=== PATIENT | female | born 1925 | race Caucasian/White ===

== ENCOUNTER 2016-05-06 11:19 | Inpatient (IN) | payer MEDICARE, BC ==
--- NOTE | 2016-05-06 11:37 | EDM.PDOC ---
ED HPI SEIZURE COMPLAINT - General Chief Complaint: Syncope Stated Complaint: [facility] Time Seen by Provider: 05/06/16 11:24 Source of Information: Reports: Patient History Limitations: Reports: No limitations - History of Present Illness INITIAL COMMENTS - FREE TEXT/NARRATIVE: 82-year-old female presents the ED per ambulance from [place]. Patient lives alone. She states she was seated at the breakfast table eating some grapefruit when she began to feel dizzy lightheaded and the next thing she knew she was on the floor. unclear how long she was on the floor. She remembers looking at the phone and finding it too far away to crawl to. She did have a life line and she did call this. The phone rang which is of course unable to answer. Paramedics did show up and identified her to be in distress and on the floor. Of note she had fallen in the kitchen. She does not believe she banged her head on anything else other than perhaps the floor. She describes a right frontal temporal headache that kind of comes and goes. Associated nausea and vomiting. She did lose control of her bladder during this syncopal event. This is never happened to her before. She denies any other injuries. However she has not gotten up off the floor since paramedics arrived. She has marked elevated systolic blood pressure at 225 with a diastolic of 81. She has chronic systolic hypertension. She seen Dr. 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 No medication changes were made. To her knowledge she has no heart problems. She denies any chest pain. She denies hurting any other body parts. She has been told she's had a stroke before because she has some right-sided lip weakness. This is never been confirmed however to her knowledge Symptom Onset Date: 05/06/16 Symptom Onset Time: 10:00 (She believes is happened around 10:00 this morning.) Timing/Duration: Reports: sudden onset Event Occurred (Where): home Event (Witnessed/Unwitnessed): unwitnessed (She lives alone) Location: Reports: other (Sudden onset of syncopal event where she fell off her chair while eating breakfast.) Severity: severe Context: Denies: recent ETOH, new/change in medications, missed med dose(s), illness, trauma, photo stimulation, activity/exercise, other Pre Event Symptom(s): Denies: premonition, confusion, chest pain, cough, diaphoresis, fever/chills, headaches, loss of appetite, malaise, nausea/vomiting , rash, shortness of breath, syncope, weakness Event Symptoms: Reports: incontinence, confusion, headaches, nausea/vomiting ( Vomited twice on the way to town.). Denies: tongue biting (Lost control of her bladder.), syncope, weakness, chest pain, cough, diaphoresis, fever/chills ( Right temporal frontal headache), loss of appetite, malaise, rash, shortness of breath Post Event Symptoms: Reports: headache. Denies: confused, combative, lethargic , altered speech Associated Injuries: Reports: other Treatments [employer]: Reports: Other (see below) (No injuries identified.) - Related Data Allergies/ADRs: Allergies Allergy/AdvReac Type Severity Reaction Status Date / Time procaine HCl [From Novocain] AdvReac Fainting Verified 05/06/16 12:05 rosuvastatin calcium AdvReac Muscle Verified 05/06/16 12:05 [From Crestor] Aches Home Meds: Home Meds Oxybutynin 5 mg PO DAILY PRN 03/17/14 [History] Cyanocobalamin (Vitamin B-12) [B-12] 2,500 mcg PO DAILY 12/01/14 [History] LORazepam [Ativan] 0.5 mg PO Q12H PRN 12/01/14 [History] Lisinopril [Prinivil] 20 mg PO BID 12/01/14 [History] Spironolactone [Aldactone] 12.5 mg PO DAILY 12/01/14 [History] cloNIDine HCl [Catapres] 0.1 mg PO ASDIRECTED PRN 12/01/14 [History] cloNIDine [Catapres-TTS 3] 0.3 mg TOP WEEKLY 12/01/14 [History] Aspirin/Calcium Carbonate/Mag [Aspirin Buffered 325 mg Tab] 325 mg PO DAILY 08/21 [History] Lutein 2 tab PO BID 05/14/15 [History] Metoprolol Succinate [Toprol XL] 25 mg PO DAILY 05/14/15 [History] Pravastatin [Pravachol] 5 mg PO ASDIRECTED 05/14/15 [History] Hydrochlorothiazide 12.5 mg PO DAILY 05/06/16 [History] amLODIPine [Norvasc] 2.5 mg PO DAILY 05/06/16 [History] Past Medical History Cardiovascular History: Reports: High cholesterol, Hypertension Genitourinary History: Reports: Urinary incontinence (Urge incontinence.) Musculoskeletal History: Reports: Back pain, chronic, Osteoarthritis, Osteoporosis Oncologic (Cancer) History: Reports: Other (see below) (She has apparently a growth on the inside of her right cheek along the mandible. 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 and she is due for surgery next week.) Social & Family History - Tobacco Use Smoking Status *Q: Never Smoker Second Hand Smoke Exposure: No - Alcohol Use Days Per Week of Alcohol Use: 0 - Recreational Drug Use Recreational Drug Use: No - Living Situation & Occupation Living situation: Reports: , alone Occupation: retired ED [employer] GENERAL - Review of Systems Review Of Systems: See Below Constitutional: Denies: fever, chills, malaise, weakness, fatigue, decreased appetite, weight loss HEENT: Reports: Glasses (Eyeglasses fell off during the syncopal event and she has suffered some contusions and abrasions to the bridge of her nose where eyeglasses would reside), Nose pain (Mild) Respiratory: Reports: No Symptoms Cardiovascular: Reports: No symptoms, Blood pressure problem (Chronic severe systolic hypertension. Controlled with clonidine tablet as well as clonidine patch), Dyspnea on exertion (Mild in her feet at times), Edema. Denies: Chest pain, Claudication ( weekly.), Lightheadedness, Orthopnea Endocrine: Reports: fatigue GI/Abdominal: Reports: Constipation (Occasional) Musculoskeletal: Reports: neck pain, joint pain (Knees hips and low back at times.) Skin: Reports: no symptoms (Gautam at times) Neurological: Reports: No Symptoms. Denies: Difficulty Walking Psychiatric: Reports: No symptoms Hematologic/Lymphatic: Reports: no symptoms Immunologic: Reports: no symptoms - Physical Exam Exam: See Below Exam Limited By: No limitations General Appearance: alert, anxious, moderate distress, other (Abrasions and contusions to the bridge of her nose where her eyeglasses were.) Eye Exam: bilateral eye: normal fundi, PERRL Ears: normal TMs Nose: other (Abrasions to the bridge of her nose and to the right side of her) Throat/Mouth: Other (Patient does have a large firm indurated swelling about the size $0.50 piece along her right buccal mucosa overlying the mandible) Head Exam: atraumatic, normocephalic Neck: normal inspection, supple, non-tender, full range of motion. No: carotid bruit, lymphadenopathy (L), lymphadenopathy (R) Respiratory/Chest: no respiratory distress, lungs clear, normal breath sounds, no accessory muscle use, other (Clonidine patches present on her right upper anterior chest she reports that she's he changed on either Monday or Monday as she can remember.) Cardiovascular: normal peripheral pulses, regular rate, rhythm, no edema, no gallop, no murmur, no rub GI/Abdominal: normal bowel sounds, soft, non tender, no organomegaly (Female) Exam: Other ( has been incontinent as her pants were wet with urine.) Neuro Exam (Abbreviated): alert, oriented, CN II-XII intact, normal cognition, no motor/sensory deficits. No: sensory/motor deficit DTR: 0: achilles (R), achilles (L), 1+: bicep (R), bicep (L), patella (R), patella (L) Back Exam: normal inspection, full range of motion. No: CVA tenderness (L), CVA tenderness (R), vertebral tenderness Extremities: normal inspection, normal range of motion, non-tender, no pedal edema, normal capillary refill, other Psychiatric: normal affect (Full of old range of motion of both hips and knees.) , normal mood Skin Exam: Warm, Dry, Intact, Normal color, No rash Course - Vital Signs Last Recorded V/S: Last Vital Signs Temp 36.6 C 05/06/16 17:34 Pulse 66 05/06/16 17:34 Resp 20 05/06/16 17:34 BP 179/72 H 05/06/16 17:34 Pulse Ox 98 05/06/16 17:34 - Orders/Labs/Meds Orders: Active Orders 24 hr Category Date Time Status EKG Documentation Completion [RC] STAT Care 05/06/16 11:35 Active URINALYSIS W/MICROSCOPIC [UA W/MICROSCOPIC] [URIN] Stat Lab 05/06/16 18:00 Ordered Sodium Chloride 0.9% [Normal Saline] 1,000 ml Med 05/06/16 11:45 Active IV ASDIRECTED Medication Orders Amlodipine Besylate (Norvasc) 2.5 mg PO DAILY@1830 [facility] Clonidine HCl (Catapres-Tts 3) 0.3 mg TOP Q7D [facility] Hydrochlorothiazide (Hydrochlorothiazide) 12.5 mg PO DAILY [facility] Sodium Chloride (Normal Saline) 1,000 mls @ 100 mls/hr IV ASDIRECTED [facility] Last Admin: 05/06/16 12:03 Dose: 100 mls/hr Lisinopril (Prinivil) 20 mg PO BID [facility] Lorazepam (Ativan) 0.5 mg PO Q12H PRN PRN Reason: Anxiety Metoprolol Succinate (Toprol Xl) 25 mg PO DAILY [facility] Oxybutynin Chloride (Oxybutynin) 5 mg PO DAILY PRN PRN Reason: bladder Simvastatin (Zocor) 2.5 mg PO DAILY@1830 [facility] Spironolactone (Aldactone) 12.5 mg PO DAILY [facility] Labs: Laboratory Tests 05/06/16 05/06/16 05/06/16 Range/Units 12:06 12:06 12:06 WBC 7.24 (3.98-10.04) K/mm3 RBC 3.39 L (3.98-5.22) M/mm3 Hgb 10.8 L (11.2-15.7) gm/L Hct 30.7 L (34.1-44.9) % MCV 90.6 (79.4-94.8) fl MCH 31.9 (25.6-32.2) pg MCHC 35.2 (32.2-35.5) g/dl RDW Std Deviation 41.7 (36.4-46.3) fL Plt Count 182 (182-369) K/mm3 MPV 9.9 (9.4-12.3) fl Neutrophils % (Manual) 84 H (40-60) % Band Neutrophils % 0 (0-10) % Lymphocytes % (Manual) 13 L (20-40) % Atypical Lymphs % 0 % Monocytes % (Manual) 2 (2-10) % Eosinophils % (Manual) 0 L (0.7-5.8) % Basophils % (Manual) 1 (0.1-1.2) Platelet Estimate Adequate RBC Morph Comment Normal PT 11.5 (8.0-13.0) SECONDS INR 1.05 Sodium 133 L (136-145) mEq/L Potassium 3.2 L (3.5-5.1) mEq/L Chloride 97 L (98-107) mEq/L Carbon Dioxide 25 (21-32) mEq/L Anion Gap 14.2 (5-15) BUN 18 (7-18) mg/dL Creatinine 0.9 (0.55-1.02) mg/dL Est Cr Clr Drug Dosing 35.74 mL/min Estimated GFR (MDRD) 59 (>60) mL/min BUN/Creatinine Ratio 20.0 H (14-18) Glucose 148 H (83-115) mg/dL Calcium 9.4 (8.5-10.1) mg/dL Total Bilirubin 0.6 (0.2-1.0) mg/dL AST 13 L (15-37) U/L ALT 21 (14-59) U/L Alkaline Phosphatase 82 (46-116) U/L Creatine Kinase (26-192) U/L CK-MB (CK-2) 0.8 (0-3.6) ng/ml Troponin I < 0.017 (0.00-0.056) ng/mL Total Protein 7.4 (6.4-8.2) g/dl Albumin 3.8 (3.4-5.0) g/dl Globulin 3.6 gm/dL Albumin/Globulin Ratio 1.1 (1-2) 05/06/ Range/Units 12:06 WBC (3.98-10.04) K/mm3 RBC (3.98-5.22) M/mm3 Hgb (11.2-15.7) gm/L Hct (34.1-44.9) % MCV (79.4-94.8) fl MCH (25.6-32.2) pg MCHC (32.2-35.5) g/dl RDW Std Deviation (36.4-46.3) fL Plt Count (182-369) K/mm3 MPV (9.4-12.3) fl Neutrophils % (Manual) (40-60) % Band Neutrophils % (0-10) % Lymphocytes % (Manual) (20-40) % Atypical Lymphs % % Monocytes % (Manual) (2-10) % Eosinophils % (Manual) (0.7-5.8) % Basophils % (Manual) (0.1-1.2) Platelet Estimate RBC Morph Comment PT (8.0-13.0) SECONDS INR Sodium (136-145) mEq/L Potassium (3.5-5.1) mEq/L Chloride (98-107) mEq/L Carbon Dioxide (21-32) mEq/L Anion Gap (5-15) BUN (7-18) mg/dL Creatinine (0.55-1.02) mg/dL Est Cr Clr Drug Dosing mL/min Estimated GFR (MDRD) (>60) mL/min BUN/Creatinine Ratio (14-18) Glucose (83-115) mg/dL Calcium (8.5-10.1) mg/dL Total Bilirubin (0.2-1.0) mg/dL AST (15-37) U/L ALT (14-59) U/L Alkaline Phosphatase (46-116) U/L Creatine Kinase 99 (26-192) U/L CK-MB (CK-2) (0-3.6) ng/ml Troponin I (0.00-0.056) ng/mL Total Protein (6.4-8.2) g/dl Albumin (3.4-5.0) g/dl Globulin gm/dL Albumin/Globulin Ratio (1-2) Meds: Medications Generic Name Dose Route Start Last Admin Trade Name Freq PRN Reason Stop Dose Admin Amlodipine Besylate 2.5 mg 05/07/16 18:30 Norvasc PO DAILY@1830 [facility] Clonidine HCl 0.3 mg 05/06/16 18:30 Catapres-Tts 3 TOP Q7D [facility] Hydrochlorothiazide 12.5 mg 05/07/16 09:00 Hydrochlorothiazide PO DAILY [facility] Sodium Chloride 1,000 mls @ 100 mls/hr 05/06/16 11:45 05/06/16 12:03 Normal Saline IV 100 mls/hr ASDIRECTED [facility] Administration Lisinopril 20 mg 05/06/16 21:00 Prinivil PO BID [facility] Lorazepam 0.5 mg 05/06/16 18:23 Ativan PO Q12H PRN Anxiety Metoprolol Succinate 25 mg 05/07/16 09:00 Toprol Xl PO DAILY [facility] Oxybutynin Chloride 5 mg 05/06/16 18:23 Oxybutynin PO DAILY PRN bladder Simvastatin 2.5 mg 05/06/16 18:30 Zocor PO DAILY@1830 [facility] Spironolactone 12.5 mg 05/07/16 09:00 Aldactone PO DAILY [facility] Discontinued Medications Generic Name Dose Route Start Last Admin Trade Name Javier PRN Reason Stop Dose Admin Amlodipine Besylate 2.5 mg 05/06/16 18:30 Norvasc PO DAILY [facility] Clonidine HCl 0.1 mg 05/06/16 13:33 05/06/16 13:55 Catapres PO 05/06/16 13:34 0.1 mg ONETIME ONE Administration Labetalol HCl 20 mg 05/06/16 12:11 05/06/16 12:17 Normodyne IVPUSH 05/06/16 12:12 20 mg ONETIME ONE Administration Lorazepam 0.5 mg 05/06/16 11:39 05/06/16 12:03 Ativan IVPUSH 05/06/16 11:40 0.5 mg ONETIME ONE Administration Metoclopramide HCl 7.5 mg 05/06/16 11:39 05/06/16 12:03 Reglan IVPUSH 05/06/16 11:40 7.5 mg ONETIME ONE Administration Potassium Chloride 20 meq 05/06/16 13:35 05/06/16 14:04 Klor-Con M20 PO 05/06/16 13:36 20 meq ONETIME ONE Administration Potassium Chloride Confirm 05/06/16 14:04 05/06/16 19:42 Klor-Con M20 Administered 05/06/16 14:05 Not Given Dose 20 meq .ROUTE .[facility] - Radiology Interpretation Free Text/Narrative:: 10-year-old female presents the ED with sudden onset of a syncopal event while seated at the breakfast table. It was unwitnessed and she lives alone. She remembers feeling a little bit dizzy and the next thing she remembers she woke up on the floor. Her glasses had been flown across the room. She has abrasions and contusions to her nose from the glasses. She appears to the face first. Complains of a headache it's kind of intermittent in the right temporal frontal skull. Denies any other injuries and no injuries were identified on exam. 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 He is due for operative intervention next week. She has systolic hypertension in her systolic blood pressure was 222/81 time of exam. Question is whether she has suffered a hypertensive bleed with a seizure with loss of bladder control. Plan CT of the brain to be done. ECG and routine labs to be carried out. She is suffering from nausea and vomiting at this time. We'll give Reglan 7.5 mg IV and Ativan 0.5 mg IV for anxiety and hopefully bring down her blood pressure wee bit. - Re-Assessments/Exams Free Text/Narrative Re-Assessment/Exam: 05/06/16 12:09 she is back from CT. It reveals advanced degenerative changes with marked enlargement of the lateral ventricles. There is diffuse small vessel ischemic changes in both basal ganglia and numerous small lacunar infarcts in both basal ganglia. The largest is in the right left posterior basal ganglia. There also appears to be a small infarct in the right parietal lobe. There is no intracranial hemorrhage. No sinuses and she did not break her nose when she fell. Chest x-ray shows normal cardiac silhouette although the apex does abut the left lateral chest wall. No pleural effusions or infiltrates are evident in the lungs. Blood pressure remains high at 203/75 and I will therefore give her labetalol 20 mg IV in an effort to reduce her blood pressure. Her ECG shows sinus rhythm at 75 per minute. There is a first-degree AV block but I don't see any other abnormalities. 05/06/16 12:22 iI was able to get old notes and echocardiogram in the past has been essentially normal with minimal mitral regurgitation and minimal aortic valve regurgitation. Ejection fraction was maintained at 6065% at that time. This was done . She an ultrasound of her carotid arteries at the same admission 0 and no significant plaque is identified within either carotid artery. She was admitted to ICU on a nitroglycerin drip due to hypertensive crisis. We'll see how she responded to labetalol IV bolus and then consider starting a drip. 05/06/16 12:26 BP pressure is falling. It is currently 154 over 60.HR is 68. 05/06/16 13:34 Systolic blood pressure is gradually increasing and is currently 175. Going to give her clonidine 0.1 mg orally. Labs reveal normal white count 7.24 with a left shift of 84% neutrophils and no bands. Hemoglobin is low at 10.8 hematocrit is 30.7. Platelets are 182,000. Coags are normal. Sodium slightly low 133 potassium low at 3.2. Glucose mildly elevated at 148. Troponin is less than 0.017. The rest of chemistry is untoward. Going to give very Slow- K 20 mEq by mouth due to her hypokalemia. I will speak to the hospital spoke keep her in the hospital for observation status due to hypertensive crisis and the fact that she is a syncopal episode of unknown duration while seated today. The reason for this is unclear. She has evidence of multi-infarct in both basal ganglia on CT. On rechecking her panties were a bit wet but her clothing was not truly soaked with urine so she never lost complete control of her urinary bladder during this event. Therefore it is unlikely that she did suffer a seizure. 05/06/16 14:16 nurses report that when they had her up walking she feels like she is listing a little bit to the left. He did not have to help her however she ambulated to the bathroom fairly well her own. Right frontal headache is still present to a mild degree. She complaining more of pain down her lower cervical spine area. I will therefore have CT of this area carried out. Note on my initial assessment she complained of no pain on palpation throughout the spine. 05/06/16 14:40 CT cervical spine has been completed. He reveals reveals extensive degenerative changes throughout the cervical spine particularly at the odontoid atlas juxtaposition. There is extensive degenerative disc disease throughout. No fractures are identified. 05/06/16 16:02 I had ordered an MRI of her brain to be done but unfortunately she has a pacemaker that is to be covered by a special To prevent the MRI or Magnant from disrupting information contained within the pacemaker itself. I found out she had an MRA of her brain 2 weeks ago and he did used to cover at that time successfully. Every was included in her admitting history. He still does not rule out an acute event. Spoke with Dr. Baumann and the plan will be to admit her to the observation unit for hypertension control and to see how she manages on her own since she lives alone at age 89. It's unclear why she had a severe something syncopal event while at the seated position. Cannot rule out another CVA. No cardiovascular etiology could be identified on exam today. Departure - Departure Time of Disposition: 16:03 Disposition: Refer to Observation Condition: fair Clinical Impression: Syncope and collapse, Systolic hypertension with cerebrovascular disease Fractured nasal bones Qualifiers: Encounter type: initial encounter Fracture type: closed Qualified Code(s): S02.2XXA - Fracture of nasal bones, initial encounter for closed fracture - My Orders Last 24 Hours: My Active Orders 05/06/16 11:35 EKG Documentation Completion [RC] STAT 05/06/16 11:45 Sodium Chloride 0.9% [Normal Saline] 1,000 ml IV ASDIRECTED 05/06/16 18:00 URINALYSIS W/MICROSCOPIC [UA W/MICROSCOPIC] [URIN] Stat - Assessment/Plan Last 24 Hours: My Active Orders 05/06/16 11:35 EKG Documentation Completion [RC] STAT 05/06/16 11:45 Sodium Chloride 0.9% [Normal Saline] 1,000 ml IV ASDIRECTED 05/06/16 18:00 URINALYSIS W/MICROSCOPIC [UA W/MICROSCOPIC] [URIN] Stat
[2016-05-06] MEDS ORDERED: Metoclopramide 10 MG/2 ML SDV IVPUSH ONE (11:39)
[2016-05-06] MEDS ORDERED: LORazepam 2 MG/ML MDV IVPUSH ONE (11:39)
[2016-05-06] MEDS: Sodium Chloride 0.9% 1,000 ML IV SCH ×2 (12:03→23:01)
--- NOTE | 2016-05-06 12:06 | CT ---
Head CT Technique: Multiple axial sections through the brain were obtained. Intravenous contrast was not utilized. Comparison: Previous head CT study of 05/14/15. Findings: Ventricles along with basal cisterns and sulci over the convexities are mildly prominent. Old lacunar infarcts are seen within the basal ganglia. Mild diminished density noted within the periventricular white matter and subcortical white matter compatible with small vessel ischemic demyelination change. No other abnormal parenchymal densities are seen. No evidence of intracranial hemorrhage. No midline shift or mass effect is seen. Bone window settings were reviewed which shows no discrete calvarial abnormality. Rounded soft tissue finding noted within the left maxillary sinus compatible with retention cyst measuring 1.2 cm. Mild mucosal thickening in seen within both maxillary sinuses. Impression: 1. Sinus findings which are felt to be incidental. 2. Senescent change as described above which is similar to prior study. 3. No acute intracranial abnormality is seen. Diagnostic code #2
[2016-05-06] MEDS ORDERED: Labetalol 100 MG/20 ML MDV IVPUSH ONE (12:11)
--- NOTE | 2016-05-06 12:19 | CR ---
Chest: Portable view of the chest was obtained. Comparison: Previous chest x-ray of 04/15/14. Heart size appears within normal limits for portable technique. Tortuous thoracic aorta is seen. No acute appearing infiltrates are seen. Bony structures are grossly intact. Incidental scoliosis is noted. Impression: 1. Nothing acute is suspected on portable chest x-ray. Diagnostic code #2
[2016-05-06] MEDS ORDERED: cloNIDine 0.1 MG Tab PO ONE (13:33)
[2016-05-06] MEDS ORDERED: Potassium Chloride 20 MEQ Tab.ER PO ONE (13:35)
[2016-05-06] MEDS ORDERED: Potassium Chloride 20 MEQ Tab.ER ONE (14:04)
--- NOTE | 2016-05-06 15:00 | CT ---
CT cervical spine Technique: Multiple axial sections were obtained from above the C1 inferiorly to the top of T2. Reconstructed sagittal and coronal images were reviewed. Comparison: Previous MRI cervical spine study of 03/24/16. Findings: Vertebral body heights and disc spaces are maintained. Diffuse anterior endplate osteophytes are seen. Degenerative change also noted between the dens and anterior arch of C1. Mild right-sided neural foraminal stenosis noted at C3-C4. Other neural foramina are felt to be patent. Diffuse degenerative change noted throughout the apophyseal joints. Vertebral bodies and posterior arches are intact with no fracture being seen. Mastoid sinuses and middle ear cavities are clear. Posterior skull base is intact. Impression: 1. Degenerative change as noted above. No acute bony abnormality is seen. Diagnostic code #2
[2016-05-06] MEDS ORDERED: LORazepam 0.5 MG Tab PO PRN (18:23)
[2016-05-06] MEDS ORDERED: Oxybutynin 5 MG Tab PO PRN (18:23)
[2016-05-06] MEDS ORDERED: amLODIPine 2.5 MG Tab PO SCH (18:30)
[2016-05-06] MEDS ORDERED: Simvastatin 10 MG Tab PO SCH (18:30)
--- NOTE | 2016-05-06 19:33 | PCM.HP ---
H&P History of Present Illness - General Date of Service: 05/06/16 Admit Problem/Dx: Admission Diagnosis/Problem Admission Diagnosis/Problem Syncope Source of Information: Patient, Provider History Limitations: Reports: No limitations - History of Present Illness Initial Comments - Free Text/Narative: 89 year female PMH hypertension, hyperlipidemia, urinary incontinence presented to the ED after a presyncopal episode. There is no loss of memory of the occurence, she sat down to eat around 10 am later than her usual breakfast. Had not taken her meds which she normally takes with her breakfast. Has seen a educational consultant at [facility], but now sees Soheila Barragan whom she saw 2-4 weeks ago. There have been no change in her medications recently. She denied feeling ill prior to the episode; did lose urinary but there appears to be no seizure like activity. As a result of the fall she has mild facial swell and minimal pain. She reported a headcahe on presentation to the ED and two occurrences of nausea and vomiting. The EMS system was initiated by [facility]. A CVA work up was unremarkable, CT of head without contrast. An MRA of the brain was recently performed which was unremarkable. A 2D echoas well as carotid duplex were performed 2014 or 2015, each study was within normal limits. The patient's last admission occurred early for hypertensive urgency, she has been stable subsequently but had markedly elevated blood pressure in the ED. Onset of Symptoms: Reports: sudden Symptom Onset Date: 05/06/16 Duration of Symptoms: Reports: Hour(s): Severity: moderate Improves with: Reports: None Worsens with: Reports: None Associated Symptoms: Reports: confusion, headaches, nausea/vomiting Right Head Pain Score (Numeric/FACES): 3 - Related Data Allergies/Adverse Reactions: Allergies Allergy/AdvReac Type Severity Reaction Status Date / Time procaine HCl [From Novocain] AdvReac Fainting Verified 05/06/16 12:05 rosuvastatin calcium AdvReac Muscle Verified 05/06/16 12:05 [From Crestor] Aches Home Medications: Home Meds Oxybutynin 5 mg PO DAILY PRN 03/17/14 [History] Cyanocobalamin (Vitamin B-12) [B-12] 2,500 mcg PO DAILY 12/01/14 [History] LORazepam [Ativan] 0.5 mg PO Q12H PRN 12/01/14 [History] Lisinopril [Prinivil] 20 mg PO BID 12/01/14 [History] Spironolactone [Aldactone] 12.5 mg PO DAILY 12/01/14 [History] cloNIDine HCl [Catapres] 0.1 mg PO ASDIRECTED PRN 12/01/14 [History] cloNIDine [Catapres-TTS 3] 0.3 mg TOP WEEKLY 12/01/14 [History] Aspirin/Calcium Carbonate/Mag [Aspirin Buffered 325 mg Tab] 325 mg PO DAILY 08/21 [History] Lutein 2 tab PO BID 05/14/15 [History] Metoprolol Succinate [Toprol XL] 25 mg PO DAILY 05/14/15 [History] Pravastatin [Pravachol] 5 mg PO ASDIRECTED 05/14/15 [History] Hydrochlorothiazide 12.5 mg PO DAILY 05/06/16 [History] Omeprazole 20 mg PO DAILY 05/06/16 [History] Rivaroxaban [Xarelto] 20 mg PO QPM 05/06/16 [History] amLODIPine [Norvasc] 2.5 mg PO DAILY 05/06/16 [History] Past Medical History HEENT History: Reports: Cataract, Hard of hearing Cardiovascular History: Reports: High cholesterol, Hypertension Genitourinary History: Reports: Urinary incontinence 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: Musculoskeletal History: Reports: Back pain, chronic, Osteoarthritis, Osteoporosis Neurological History: Reports: TIA Other Neuro History: currently admitted for TIA Psychiatric History: Reports: Anxiety Hematologic History: Reports: Anemia, B12 deficiency Oncologic (Cancer) History: Reports: Other (see below) Other Oncologic History: mouth - Infectious Disease History Infectious Disease History: Reports: Chicken pox, Measles, Mumps, Shingles - Past Surgical History HEENT Surgical History: Reports: Cataract surgery Cardiovascular Surgical History: Reports: None Female Surgical History: Reports: None Neurological Surgical History: Reports: None Musculoskeletal Surgical History: Reports: None Oncologic Surgical History: Reports: None Social & Family History - Family History Cardiac: Reports: Heart failure, High cholesterol, Hypertension, NM Respiratory: Reports: COPD OBGYN: Reports: Oncologic: Reports: Lung, Pancreatic - Tobacco Use Smoking Status *Q: Never Smoker Second Hand Smoke Exposure: No - Caffeine Use Caffeine Use: Reports: Coffee, Tea - Alcohol Use Days Per Week of Alcohol Use: 0 - Recreational Drug Use Recreational Drug Use: No - Living Situation & Occupation Living situation: Reports: , alone Occupation: retired H&P Review of Systems - Review of Systems: Review Of Systems: See Below General: Reports: weakness (unable to get up) HEENT: Reports: no symptoms Pulmonary: Reports: No Symptoms Cardiovascular: Reports: other (presyncopal) Gastrointestinal: Reports: No symptoms Genitourinary: Reports: no symptoms Musculoskeletal: Reports: no symptoms Skin: Reports: bruising (facial) Psychiatric: Denies: confusion Neurological: Reports: Dizziness, Headache (right methodist). Denies: Confusion Hematologic/Lymphatic: Reports: no symptoms Immunologic: Reports: no symptoms Exam - Exam Exam: See Below - Vital Signs Vital Signs: Last Vital Signs Temp 36.6 C 05/06/16 17:34 Pulse 66 05/06/16 17:34 Resp 20 05/06/16 17:34 BP 179/72 H 05/06/16 17:34 Pulse Ox 98 05/06/16 17:34 Weight: 74.435 kg - Exam Quality Assessment: DVT prophylaxis General: alert, oriented, cooperative HEENT: EACs clear, EOMI, Hearing intact, Nares patent, Pupils equal, Pupils reactive, Other (facial swelling; ecchymosis) Neck: supple, trachea midline Lungs: Normal respiratory effort Cardiovascular: regular rate, regular rhythm Abdomen: normal bowel sounds, soft (Female) Exam: Deferred Rectal (Female) Exam: Deferred Back Exam: normal inspection Extremities: normal pulses Skin: warm Neurological: cranial nerves intact, reflexes equal bilateral Neuro Extensive - Mental Status: alert, oriented x3, normal mood/affect, normal cognition, memory intact Psychiatric: alert, normal affect, normal mood - Patient Data Result Diagrams: 05/07/16 05:20 05/07/16 05:20 *Q Meaningful Use (ADM) - VTE *Q VTE Criteria *Q: - Stroke *Q Stroke Criteria *Q: - AMI *Q AMI Criteria *Q: Problem List Initiated/Reviewed/Updated: Yes Orders Last 24hrs: Active Orders 24 hr Category Date Time Status Bedrest Bathroom Privileges [RC] ASDIRECTED Care 05/06/16 19:06 Active EKG 12 Lead [EKG Documentation Completion] [RC] ROUTINE Care 05/07/16 08:00 Active Vital Signs [RC] PER UNIT ROUTINE Care 05/06/16 18:54 Active Consult to Occupational Therapy [OT Evaluation and Cons 05/07/16 10:00 Active Treatment] [CONS] Routine Consult to Physical Therapy [PT Evaluation and Cons 05/07/16 09:00 Active Treatment] [CONS] Routine Consult to Regional Clinical Research Associate [CONS] Routine Cons 05/06/16 18:55 Active Full Liquid Diet [DIET] Diet 05/06/16 Dinner Active BASIC METABOLIC PANEL,BMP [CHEM] DAILY Lab 05/07/16 05:00 Ordered BASIC METABOLIC PANEL,BMP [CHEM] DAILY Lab 05/08/16 05:00 Ordered BASIC METABOLIC PANEL,BMP [CHEM] DAILY Lab 05/09/16 05:00 Ordered CBC WITH AUTO DIFF [HEME] DAILY Lab 05/07/16 05:00 Ordered CBC WITH AUTO DIFF [HEME] DAILY Lab 05/08/16 05:00 Ordered CBC WITH AUTO DIFF [HEME] DAILY Lab 05/09/16 05:00 Ordered CKMB [CHEM] Routine Lab 05/07/16 05:00 Ordered CRP [C-REACTIVE PROTEIN] [CHEM] DAILY Lab 05/07/16 05:00 Ordered CRP [C-REACTIVE PROTEIN] [CHEM] DAILY Lab 05/08/16 05:00 Ordered CRP [C-REACTIVE PROTEIN] [CHEM] DAILY Lab 05/09/16 05:00 Ordered INFLUENZA A+B AG SCREEN [RM] Routine Lab 05/06/16 18:51 Uncollected MAGNESIUM [CHEM] DAILY Lab 05/07/16 05:00 Ordered MAGNESIUM [CHEM] DAILY Lab 05/08/16 05:00 Ordered MAGNESIUM [CHEM] DAILY Lab 05/09/16 05:00 Ordered MYCOPLASMA PNEUMONIAE IGM AB [CHEM] Routine Lab 05/07/16 05:00 Ordered TROPONIN I [CHEM] Routine Lab 05/07/16 05:00 Ordered TSH [CHEM] DAILY Lab 05/07/16 05:00 Ordered TSH [CHEM] DAILY Lab 05/08/16 05:00 Ordered TSH [CHEM] DAILY Lab 05/09/16 05:00 Ordered Hydrochlorothiazide Med 05/07/16 09:00 Active 12.5 mg PO DAILY LORazepam [Ativan] Med 05/06/16 18:23 Active 0.5 mg PO Q12H PRN Lisinopril [Prinivil] Med 05/06/16 21:00 Active 20 mg PO BID Metoprolol Succinate [Toprol XL] Med 05/07/16 09:00 Active 25 mg PO DAILY Oxybutynin Med 05/06/16 18:23 Active 5 mg PO DAILY PRN Simvastatin [Zocor] Med 05/06/16 18:30 Active 2.5 mg PO DAILY@1830 Spironolactone [Aldactone] Med 05/07/16 09:00 Active 12.5 mg PO DAILY amLODIPine [Norvasc] Med 05/07/16 18:30 Active 2.5 mg PO DAILY@1830 cloNIDine [Catapres-TTS 3] Med 05/06/16 18:30 Pending 0.3 mg TOP Q7D Code Status [Resuscitation Status] Routine Resus Stat 05/06/16 18:55 Ordered Medication Orders Amlodipine Besylate (Norvasc) 2.5 mg PO DAILY@1830 [facility] Clonidine HCl (Catapres-Tts 3) 0.3 mg TOP Q7D [facility] Hydrochlorothiazide (Hydrochlorothiazide) 12.5 mg PO DAILY [facility] Sodium Chloride (Normal Saline) 1,000 mls @ 100 mls/hr IV ASDIRECTED [facility] Last Admin: 05/06/16 12:03 Dose: 100 mls/hr Lisinopril (Prinivil) 20 mg PO BID [facility] Lorazepam (Ativan) 0.5 mg PO Q12H PRN PRN Reason: Anxiety Metoprolol Succinate (Toprol Xl) 25 mg PO DAILY [facility] Oxybutynin Chloride (Oxybutynin) 5 mg PO DAILY PRN PRN Reason: bladder Simvastatin (Zocor) 2.5 mg PO DAILY@1830 [facility] Spironolactone (Aldactone) 12.5 mg PO DAILY [facility] Assessment/Plan Comment:: Impression: Presyncopal episode, doubt seizure Can not exclude arrhythmia, has a loop recorder Recent CVA work up, MRA without contrast, circulation was intact Remote CV evaluation, carotid duplex, 2D echo, WNL Hypertensive episode, systolic; requires alpha john and 4 meds for control Headache, unspecified Nasal swelling post fall, no LOC Plan: Neurocheck IVF MS telemetry Ischemic eval, cardiac enzymes and ECG CT of head repeat, 05/08/16 if appropriate. SW/PT/OT DVT/GI prophylaxis LOS<96 hours, has been seen by ABIMBOLA; Home Health will be pursued
[2016-05-06] MEDS ORDERED: hydrALAZINE 20 MG/ML SDV IVPUSH PRN (20:17)
[2016-05-06] MEDS: Lisinopril 20 MG Tab PO SCH (20:27)
[2016-05-06] MEDS ORDERED: cloNIDine 0.3 MG/Day Transdermal Patch TOP SCH (21:00)
[2016-05-06] MEDS: cloNIDine 0.1 MG Tab PO SCH (21:21)
[2016-05-07] MEDS: Lisinopril 20 MG Tab PO SCH ×2 (08:20→21:34)
[2016-05-07] MEDS: Spironolactone 25 MG Tab PO SCH (08:21)
[2016-05-07] MEDS: Metoprolol Succinate 25 MG Tab.ER PO SCH (08:21)
[2016-05-07] MEDS: cloNIDine 0.1 MG Tab PO SCH ×2 (08:22→21:34)
[2016-05-07] MEDS ORDERED: Hydrochlorothiazide 25 MG Tab PO SCH (09:00)
[2016-05-07] MEDS ORDERED: Enoxaparin 40 MG/0.4 ML Syringe SUBCUT SCH (09:15)
--- NOTE | 2016-05-07 12:05 | PCM.PN ---
- General Info Date of Service: 05/07/16 Functional Status: Reports: pain controlled, tolerating diet, ambulating (with walker), urinating - Review of Systems General: Reports: No Symptoms HEENT: Reports: no symptoms Pulmonary: Reports: no symptoms Cardiovascular: Reports: No Symptoms Gastrointestinal: Reports: No symptoms Genitourinary: Reports: no symptoms Musculoskeletal: Reports: no symptoms Skin: Reports: no symptoms Neurological: Reports: No Symptoms Psychiatric: Reports: no symptoms - Patient Data Vitals - most recent: Last Vital Signs Temp 37.3 C 05/07/16 11:59 Pulse 69 05/07/16 11:59 Resp 20 05/07/16 11:59 BP 131/71 05/07/16 11:59 Pulse Ox 97 05/07/16 11:59 Weight - most recent: 74.435 kg I&O - last 24 hours: Intake & Output 05/06/16 05/07/16 05/07/16 22:59 06:59 14:59 Intake Total 345 1355 240 Balance 345 1355 240 Lab Results last 24 hrs: Laboratory Results - last 24 hr 05/06/16 05/07/16 05/07/16 Range/Units 18:30 05:20 05:20 WBC 4.96 (3.98-10.04) K/mm3 RBC 2.86 L (3.98-5.22) M/mm3 Hgb 9.1 L (11.2-15.7) gm/L Hct 26.8 L (34.1-44.9) % MCV 93.7 (79.4-94.8) fl MCH 31.8 (25.6-32.2) pg MCHC 34.0 (32.2-35.5) g/dl RDW Std Deviation 43.1 (36.4-46.3) fL Plt Count 181 L (182-369) K/mm3 MPV 10.2 (9.4-12.3) fl Neut % (Auto) 65.7 (34.0-71.1) % Lymph % (Auto) 19.4 (19.3-51.7) % [place] % (Auto) 13.5 H (4.7-12.5) % Eos % (Auto) 1.0 (0.7-5.8) Baso % (Auto) 0.2 (0.1-1.2) % Neut # (Auto) 3.26 (1.56-6.13) K/mm3 Lymph # (Auto) 0.96 L (1.18-3.74) K/mm3 [place] # (Auto) 0.67 H (0.24-0.36) K/mm3 Eos # (Auto) 0.05 (0.04-0.36) K/mm3 Baso # (Auto) 0.01 (0.01-0.08) K/mm3 Sodium 135 L (136-145) mEq/L Potassium 3.8 (3.5-5.1) mEq/L Chloride 101 (98-107) mEq/L Carbon Dioxide 25 (21-32) mEq/L Anion Gap 12.8 (5-15) BUN 12 (7-18) mg/dL Creatinine 0.9 (0.55-1.02) mg/dL Est Cr Clr Drug Dosing 35.74 mL/min Estimated GFR (MDRD) 59 (>60) mL/min BUN/Creatinine Ratio 13.3 L (14-18) Glucose 103 (83-115) mg/dL Calcium 8.3 L (8.5-10.1) mg/dL Magnesium 1.9 (1.8-2.4) mg/dl CK-MB (CK-2) 1.0 (0-3.6) ng/ml Troponin I 0.085 H* (0.00-0.056) ng/mL C-Reactive Protein 0.5 (<1.0) mg/dL TSH 3rd Generation 2.651 (0.358-3.74) uIU/mL Urine Color Yellow (Yellow) Urine Appearance Slt cloudy H (Clear) Urine pH 6.0 (5.0-8.0) Ur Specific Silver 1.020 (1.005-1.030) Urine Protein Trace H (Negative) Urine Glucose (UA) Negative (Negative) Urine Ketones Negative (Negative) Urine Occult Blood Negative (Negative) Urine Nitrite Positive H (Negative) Urine Bilirubin Negative (Negative) Urine Urobilinogen 0.2 (0.2-1.0) Ur Leukocyte Esterase 1+ H (Negative) Urine RBC 0-5 (0-5) /hpf Urine WBC 20-30 H (0-5) /hpf Ur Squamous Epith Cells 10-20 H (0-5) /hpf Urine Bacteria Many H (FEW) /hpf Urine Mucus Not seen (FEW) /hpf Mycoplasma pneumon IgM Negative (NEGATIVE) [place] Results last 24 hrs: Microbiology 05/07/16 01:30 Influenza Type A Antigen Screen - Final Nasal, Left NEGATIVE INFLUENZA A VIRUS AG Influenza Type B Antigen Screen - Final NEGATIVE INFLUENZA B VIRUS AG Med Orders - Current: Current Medications Amlodipine Besylate (Norvasc) 2.5 mg PO DAILY@1830 [facility] Clonidine HCl (Catapres-Tts 3) 0.3 mg TOP Q7D [facility] Last Admin: 05/06/16 22:57 Dose: 0.3 mg Clonidine HCl (Catapres) 0.1 mg PO Q12HR [facility] Last Admin: 05/07/16 08:22 Dose: 0.1 mg Enoxaparin Sodium (Lovenox) 40 mg SUBCUT DAILY [facility] Hydralazine HCl (Apresoline) 20 mg IVPUSH Q6H PRN PRN Reason: Hypertension Hydrochlorothiazide (Hydrochlorothiazide) 12.5 mg PO DAILY [facility] Last Admin: 05/07/16 08:22 Dose: 12.5 mg Sodium Chloride (Normal Saline) 1,000 mls @ 100 mls/hr IV ASDIRECTED [facility] Last Admin: 05/06/16 23:01 Dose: 100 mls/hr Ceftriaxone Sodium 1 gm/ (Sodium Chloride) 100 mls @ 200 mls/hr IV Q24H [facility] Lisinopril (Prinivil) 20 mg PO BID [facility] Last Admin: 05/07/16 08:20 Dose: 20 mg Lorazepam (Ativan) 0.5 mg PO Q12H PRN PRN Reason: Anxiety Metoprolol Succinate (Toprol Xl) 25 mg PO DAILY [facility] Last Admin: 05/07/16 08:21 Dose: 25 mg Miscellaneous Information (Remove Patch) 1 ea TRDERM Q7D [facility] Last Admin: 05/06/16 21:30 Dose: 1 ea Oxybutynin Chloride (Oxybutynin) 5 mg PO DAILY PRN PRN Reason: bladder Simvastatin (Zocor) 2.5 mg PO Q48H [facility] Spironolactone (Aldactone) 12.5 mg PO DAILY [facility] Last Admin: 05/07/16 08:21 Dose: 12.5 mg Discontinued Medications Amlodipine Besylate (Norvasc) 2.5 mg PO DAILY [facility] Last Admin: 05/06/16 20:40 Dose: Not Given Clonidine HCl (Catapres) 0.1 mg PO ONETIME ONE Stop: 05/06/16 13:34 Last Admin: 05/06/16 13:55 Dose: 0.1 mg Labetalol HCl (Normodyne) 20 mg IVPUSH ONETIME ONE Stop: 05/06/16 12:12 Last Admin: 05/06/16 12:17 Dose: 20 mg Lorazepam (Ativan) 0.5 mg IVPUSH ONETIME ONE Stop: 05/06/16 11:40 Last Admin: 05/06/16 12:03 Dose: 0.5 mg Metoclopramide HCl (Reglan) 7.5 mg IVPUSH ONETIME ONE Stop: 05/06/16 11:40 Last Admin: 05/06/16 12:03 Dose: 7.5 mg Potassium Chloride (Klor-Con M20) 20 meq PO ONETIME ONE Stop: 05/06/16 13:36 Last Admin: 05/06/16 14:04 Dose: 20 meq Potassium Chloride (Klor-Con M20) Confirm Administered Dose 20 meq .ROUTE .STK- MED ONE Stop: 05/06/16 14:05 Last Admin: 05/06/16 19:42 Dose: Not Given Simvastatin (Zocor) 2.5 mg PO DAILY@1830 [facility] Last Admin: 05/06/16 21:45 Dose: Not Given - Exam Quality Assessment: DVT prophylaxis General: alert, oriented, cooperative, no acute distress HEENT: Pupils equal, Pupils reactive, EOMI, Other (ecchymosis nasal region) Neck: supple, trachea midline Lungs: Normal respiratory effort Cardiovascular: Regular Rate, Regular Rhythm Abdomen: bowel sounds present, soft, no tenderness, no distension (Female) Exam: Deferred Back Exam: normal inspection Extremities: normal pulses Skin: warm Neurological: no new focal deficit, normal speech Psy/Mental Status: alert, normal affect, normal mood - Problem List & Annotations (1) Fractured nasal bones SNOMED Code(s): 643269296 Code(s): S02.2XXA - FRACTURE OF NASAL BONES, INIT ENCNTR FOR CLOSED FRACTURE Status: Acute Current Visit: Yes Qualifiers: Encounter type: initial encounter Fracture type: closed Qualified Code(s) : S02.2XXA - Fracture of nasal bones, initial encounter for closed fracture (2) Systolic hypertension with cerebrovascular disease SNOMED Code(s): 39756274 Code(s): I67.4 - HYPERTENSIVE ENCEPHALOPATHY Status: Acute Current Visit : Yes (3) "Hypertensive disorder, systemic arterial " SNOMED Code(s): 16540279 Code(s): I10 - ESSENTIAL (PRIMARY) HYPERTENSION Status: Acute Current Visit: No - Problem List Review Problem List Initiated/Reviewed/Updated: Yes - My Orders Last 24 Hours: My Active Orders 05/06/16 18:23 LORazepam [Ativan] 0.5 mg PO Q12H PRN Oxybutynin 5 mg PO DAILY PRN 05/06/16 18:54 Vital Signs [RC] 00,04,08,12,16,20 05/06/16 18:55 Consult to Warehouse Operations Manager [CONS] Routine Code Status [Resuscitation Status] Routine 05/06/16 19:06 Bedrest Bathroom Privileges [RC] ASDIRECTED 05/06/16 20:17 hydrALAZINE [Apresoline] 20 mg IVPUSH Q6H PRN 05/06/16 21:00 Lisinopril [Prinivil] 20 mg PO BID Remove Patch 1 ea TRDERM Q7D cloNIDine [Catapres-TTS 3] 0.3 mg TOP Q7D cloNIDine [Catapres] 0.1 mg PO Q12HR 05/06/16 21:07 Patient Status [ADT] Routine 05/06/16 Dinner Full Liquid Diet [DIET] 05/07/16 09:00 Consult to Physical Therapy [PT Evaluation and Treatment] [CONS] Routine Hydrochlorothiazide 12.5 mg PO DAILY Metoprolol Succinate [Toprol XL] 25 mg PO DAILY Spironolactone [Aldactone] 12.5 mg PO DAILY 05/07/16 09:15 Enoxaparin [Lovenox] 40 mg SUBCUT DAILY 05/07/16 10:00 Consult to Occupational Therapy [OT Evaluation and Treatment] [CONS] Routine 05/07/16 11:45 cefTRIAXone [Rocephin] 1 gm Sodium Chloride 0.9% [Normal Saline] 100 ml IV Q24H 05/07/16 18:30 Simvastatin [Zocor] 2.5 mg PO Q48H amLODIPine [Norvasc] 2.5 mg PO DAILY@1830 05/08/16 05:00 BASIC METABOLIC PANEL,BMP [CHEM] DAILY CBC WITH AUTO DIFF [HEME] DAILY CRP [C-REACTIVE PROTEIN] [CHEM] DAILY MAGNESIUM [CHEM] DAILY TSH [CHEM] DAILY 05/09/16 05:00 BASIC METABOLIC PANEL,BMP [CHEM] DAILY CBC WITH AUTO DIFF [HEME] DAILY CRP [C-REACTIVE PROTEIN] [CHEM] DAILY MAGNESIUM [CHEM] DAILY TSH [CHEM] DAILY 05/09/16 07:00 CBC W/O DIFF,HEMOGRAM [HEME] MOTH@0700 05/12/16 07:00 CBC W/O DIFF,HEMOGRAM [HEME] MOTH@0700 05/16/16 07:00 CBC W/O DIFF,HEMOGRAM [HEME] MOTH@0700 05/19/16 07:00 CBC W/O DIFF,HEMOGRAM [HEME] MOTH@0700 05/23/16 07:00 CBC W/O DIFF,HEMOGRAM [HEME] MOTH@0700 05/26/16 07:00 CBC W/O DIFF,HEMOGRAM [HEME] MOTH@0700 - Plan Plan:: Impression: AUTI Presyncopal episode, doubt seizure Can not exclude arrhythmia, has a loop recorder Cardiac history includes diagnostic cardiac cath Recent CVA work up, MRA without contrast, circulation was intact Remote CV evaluation, carotid duplex, 2D echo, WNL Hypertensive episode, systolic; requires alpha john and 4 meds for control Headache, unspecified; resolved, minimal facial pain. Nasal swelling post fall, no LOC ABIMBOLA recommends Home Health Plan: Start rocephin Advance diet Neurocheck, stop. IVF, saline lock MS telemetry Increase activity Ischemic eval, cardiac enzymes and ECG No need for repeat CT of head. SW/PT/OT DVT/GI prophylaxis LOS<96 hours, has been seen by ABIMBOLA; Home Health will be pursued; dc 05/09/16
[2016-05-07] MEDS: cefTRIAXone 1 GM in Sodium Chloride 0.9% 100 ML IV SCH (13:11)
[2016-05-07] MEDS ORDERED: Rivaroxaban 10 MG Tab PO SCH (18:00)
[2016-05-07] MEDS ORDERED: amLODIPine 2.5 MG Tab PO SCH (18:30)
[2016-05-07] MEDS ORDERED: Simvastatin 10 MG Tab PO SCH (18:30)
[2016-05-07] MEDS: Sodium Chloride 0.9% 1,000 ML IV SCH (19:29)
[2016-05-07] MEDS: Simvastatin 10 MG Tab PO SCH (21:35)
[2016-05-08] MEDS ORDERED: cloNIDine 0.1 MG Tab PO ONE (00:24)
[2016-05-08] MEDS: Sodium Chloride 0.9% 1,000 ML IV SCH (06:32)
[2016-05-08] MEDS: Pantoprazole 40 MG Tab.CR PO SCH (07:06)
[2016-05-08] MEDS: Metoprolol Succinate 25 MG Tab.ER PO SCH (08:23)
[2016-05-08] MEDS: Lisinopril 20 MG Tab PO SCH ×2 (08:24→21:19)
[2016-05-08] MEDS: cloNIDine 0.1 MG Tab PO SCH ×2 (08:24→21:17)
[2016-05-08] MEDS: Spironolactone 25 MG Tab PO SCH (08:24)
[2016-05-08] MEDS: Hydrochlorothiazide 12.5 MG Cap PO SCH (08:29)
[2016-05-08] MEDS ORDERED: Acetaminophen 325 MG Tab PO PRN (11:00)
[2016-05-08] MEDS: cefTRIAXone 1 GM in Sodium Chloride 0.9% 100 ML IV SCH (15:41)
[2016-05-08] MEDS: amLODIPine 2.5 MG Tab PO SCH (18:22)
[2016-05-08] MEDS: Rivaroxaban 10 MG Tab PO SCH (18:22)
--- NOTE | 2016-05-08 18:49 | PCM.PN ---
- General Info Date of Service: 05/08/16 Subjective Update: The patient is sitting upright in bed and feels well. She doesn't report any recurrent presyncopal or syncopal events since admission. - Review of Systems General: Denies: Fever Pulmonary: Denies: shortness of breath Cardiovascular: Denies: Chest Pain Gastrointestinal: Denies: Abdominal pain, Nausea - Patient Data Vitals - most recent: Last Vital Signs Temp 37.3 C 05/08/16 15:31 Pulse 66 05/08/16 15:31 Resp 22 H 05/08/16 15:31 BP 178/72 H 05/08/16 18:22 Pulse Ox 98 05/08/16 15:31 Weight - most recent: 74.435 kg I&O - last 24 hours: Intake & Output 05/08/16 05/08/16 05/08/16 06:59 14:59 22:59 Intake Total 1600 120 575 Output Total 4350 1300 Balance -2750 120 -725 Lab Results last 24 hrs: Laboratory Results - last 24 hr 05/08/16 05/08/16 Range/Units 05:45 05:45 WBC 4.89 (3.98-10.04) K/mm3 RBC 2.91 L (3.98-5.22) M/mm3 Hgb 9.2 L (11.2-15.7) gm/L Hct 27.2 L (34.1-44.9) % MCV 93.5 (79.4-94.8) fl MCH 31.6 (25.6-32.2) pg MCHC 33.8 (32.2-35.5) g/dl RDW Std Deviation 43.7 (36.4-46.3) fL Plt Count 186 (182-369) K/mm3 MPV 9.8 (9.4-12.3) fl Neut % (Auto) 67.3 (34.0-71.1) % Lymph % (Auto) 20.2 (19.3-51.7) % [place] % (Auto) 11.7 (4.7-12.5) % Eos % (Auto) 0.4 L (0.7-5.8) Baso % (Auto) 0.2 (0.1-1.2) % Neut # (Auto) 3.29 (1.56-6.13) K/mm3 Lymph # (Auto) 0.99 L (1.18-3.74) K/mm3 [place] # (Auto) 0.57 H (0.24-0.36) K/mm3 Eos # (Auto) 0.02 L (0.04-0.36) K/mm3 Baso # (Auto) 0.01 (0.01-0.08) K/mm3 Sodium 136 (136-145) mEq/L Potassium 3.6 (3.5-5.1) mEq/L Chloride 103 (98-107) mEq/L Carbon Dioxide 25 (21-32) mEq/L Anion Gap 11.6 (5-15) BUN 11 (7-18) mg/dL Creatinine 0.9 (0.55-1.02) mg/dL Est Cr Clr Drug Dosing 35.74 mL/min Estimated GFR (MDRD) 59 (>60) mL/min BUN/Creatinine Ratio 12.2 L (14-18) Glucose 121 H (83-115) mg/dL Calcium 8.4 L (8.5-10.1) mg/dL Magnesium 1.8 (1.8-2.4) mg/dl C-Reactive Protein 0.5 (<1.0) mg/dL Med Orders - Current: Current Medications Acetaminophen (Tylenol) 650 mg PO Q4H PRN PRN Reason: Pain/Fever Amlodipine Besylate (Norvasc) 5 mg PO DAILY@1830 [facility] Last Admin: 05/08/16 18:22 Dose: 5 mg Clonidine HCl (Catapres-Tts 3) 0.3 mg TOP Q7D [facility] Last Admin: 05/06/16 22:57 Dose: 0.3 mg Clonidine HCl (Catapres) 0.1 mg PO Q12HR [facility] Last Admin: 05/08/16 08:24 Dose: 0.1 mg Hydrochlorothiazide (Hydrochlorothiazide) 12.5 mg PO DAILY [facility] Last Admin: 05/08/16 08:29 Dose: 12.5 mg Ceftriaxone Sodium 1 gm/ (Sodium Chloride) 100 mls @ 200 mls/hr IV Q24H [facility] Last Admin: 05/08/16 15:41 Dose: 200 mls/hr Lisinopril (Prinivil) 20 mg PO BID [facility] Last Admin: 05/08/16 08:24 Dose: 20 mg Lorazepam (Ativan) 0.5 mg PO Q12H PRN PRN Reason: Anxiety Metoprolol Succinate (Toprol Xl) 25 mg PO DAILY [facility] Last Admin: 05/08/16 08:23 Dose: 25 mg Miscellaneous Information (Remove Patch) 1 ea TRDERM Q7D [facility] Last Admin: 05/06/16 21:30 Dose: 1 ea Oxybutynin Chloride (Oxybutynin) 5 mg PO DAILY PRN PRN Reason: bladder Pantoprazole Sodium (Protonix) 40 mg PO DAILY@0700 [facility] Last Admin: 05/08/16 07:06 Dose: 40 mg Rivaroxaban (Xarelto) 20 mg PO DAILY@1800 [facility] Last Admin: 05/08/16 18:22 Dose: 20 mg Simvastatin (Zocor) 5 mg PO BEDTIME [facility] Last Admin: 05/07/16 21:35 Dose: 5 mg Spironolactone (Aldactone) 12.5 mg PO DAILY [facility] Last Admin: 05/08/16 08:24 Dose: 12.5 mg Discontinued Medications Amlodipine Besylate (Norvasc) 2.5 mg PO DAILY [facility] Last Admin: 05/06/16 20:40 Dose: Not Given Amlodipine Besylate (Norvasc) 2.5 mg PO DAILY@1830 [facility] Last Admin: 05/07/16 18:04 Dose: 2.5 mg Clonidine HCl (Catapres) 0.1 mg PO ONETIME ONE Stop: 05/06/16 13:34 Last Admin: 05/06/16 13:55 Dose: 0.1 mg Clonidine HCl (Catapres) 0.1 mg PO ONETIME ONE Stop: 05/08/16 00:25 Last Admin: 05/08/16 01:01 Dose: 0.1 mg Enoxaparin Sodium (Lovenox) 40 mg SUBCUT DAILY [facility] Last Admin: 05/07/16 13:11 Dose: 40 mg Hydralazine HCl (Apresoline) 20 mg IVPUSH Q6H PRN PRN Reason: Hypertension Last Admin: 05/07/16 22:03 Dose: 20 mg Hydrochlorothiazide (Hydrochlorothiazide) 12.5 mg PO DAILY [facility] Last Admin: 05/07/16 08:22 Dose: 12.5 mg Sodium Chloride (Normal Saline) 1,000 mls @ 100 mls/hr IV ASDIRECTED [facility] Last Admin: 05/08/16 06:32 Dose: 100 mls/hr Labetalol HCl (Normodyne) 20 mg IVPUSH ONETIME ONE Stop: 05/06/16 12:12 Last Admin: 05/06/16 12:17 Dose: 20 mg Lorazepam (Ativan) 0.5 mg IVPUSH ONETIME ONE Stop: 05/06/16 11:40 Last Admin: 05/06/16 12:03 Dose: 0.5 mg Metoclopramide HCl (Reglan) 7.5 mg IVPUSH ONETIME ONE Stop: 05/06/16 11:40 Last Admin: 05/06/16 12:03 Dose: 7.5 mg Potassium Chloride (Klor-Con M20) 20 meq PO ONETIME ONE Stop: 05/06/16 13:36 Last Admin: 05/06/16 14:04 Dose: 20 meq Potassium Chloride (Klor-Con M20) Confirm Administered Dose 20 meq .ROUTE .STK- MED ONE Stop: 05/06/16 14:05 Last Admin: 05/06/16 19:42 Dose: Not Given Rivaroxaban (Xarelto) 20 mg PO QPM [facility] Simvastatin (Zocor) 2.5 mg PO DAILY@1830 [facility] Last Admin: 05/06/16 21:45 Dose: Not Given Simvastatin (Zocor) 2.5 mg PO Q48H [facility] - Exam Physical Findings Comments:: Vitals: as above General: alert and oriented. NAD Psych: calm and cooperative HEENT: normocephalic, atraumatic. EOMI Cardiac: Normal S1, S2. regular rate. No murmurs rubs, or gallops. No JVD noted. Lungs: CTAB. good air entry bilaterally. Abd: Soft, NT/ND. No HSM noted. Skin: no new visible rashes or purpura noted Neuro: CN grossly intact. Strength intact and adequate bilaterally. - Problem List & Annotations (1) Fractured nasal bones SNOMED Code(s): 248384654 Code(s): S02.2XXA - FRACTURE OF NASAL BONES, INIT ENCNTR FOR CLOSED FRACTURE Status: Acute Current Visit: Yes Qualifiers: Encounter type: initial encounter Fracture type: closed Qualified Code(s) : S02.2XXA - Fracture of nasal bones, initial encounter for closed fracture (2) Syncope and collapse SNOMED Code(s): 353164785 Code(s): R55 - SYNCOPE AND COLLAPSE Status: Acute Current Visit: Yes (3) Acute non-ST segment elevation myocardial infarction SNOMED Code(s): 221901192 Code(s): I21.4 - NON-ST ELEVATION (NSTEMI) MYOCARDIAL INFARCTION Status: Acute Current Visit: No (4) UTI (urinary tract infection) SNOMED Code(s): 59288015 Code(s): N39.0 - URINARY TRACT INFECTION, SITE NOT SPECIFIED Status: Acute Current Visit: Yes Qualifiers: Urinary tract infection type: acute cystitis Hematuria presence: without hematuria Qualified Code(s): N30.00 - Acute cystitis without hematuria (5) Demand ischemia SNOMED Code(s): 143098699 Code(s): I24.8 - OTHER FORMS OF ACUTE ISCHEMIC HEART DISEASE Status: Acute Current Visit: Yes - Problem List Review Problem List Initiated/Reviewed/Updated: Yes - My Orders Last 24 Hours: My Active Orders 05/08/16 18:30 amLODIPine [Norvasc] 5 mg PO DAILY@1830 - Plan Plan:: Syncope. Unclear etiology. No arrhythmias noted on telemetry here. 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 Pt had echo in 2014. PCP to consider rechecking if loop recorder readings are normal sinus rhythm. Demand ischemia - due to HTN urgency. Pt denies chest pain. HTN urgency - cont home regimen, increase amlodipine UTI - started on ceftriaxone Recent CVA work up, MRA without contrast, circulation was intact Remote CV evaluation, carotid duplex, 2D echo, WNL Hypertensive episode, systolic; requires alpha john and 4 meds for control Headache, unspecified; resolved, minimal facial pain. Nasal swelling post fall, no LOC SW recommends Home Health Likely discharge tomorrow with Home Health
[2016-05-08] MEDS: Simvastatin 10 MG Tab PO SCH (21:19)
[2016-05-09] MEDS: Pantoprazole 40 MG Tab.CR PO SCH (06:31)
[2016-05-09] MEDS: Metoprolol Succinate 25 MG Tab.ER PO SCH (09:10)
[2016-05-09] MEDS: Spironolactone 25 MG Tab PO SCH (09:11)
[2016-05-09] MEDS: cloNIDine 0.1 MG Tab PO SCH ×2 (09:12→20:37)
[2016-05-09] MEDS: Hydrochlorothiazide 12.5 MG Cap PO SCH (09:12)
[2016-05-09] MEDS: Lisinopril 20 MG Tab PO SCH ×2 (09:12→20:37)
[2016-05-09] MEDS ORDERED: Metoprolol Succinate 25 MG Tab.ER PO ONE (10:08)
[2016-05-09] MEDS: cefTRIAXone 1 GM in Sodium Chloride 0.9% 100 ML IV SCH ×2 (10:33→12:12)
--- NOTE | 2016-05-09 13:05 | PCM.PN ---
- General Info Date of Service: 05/09/16 Admission Dx/Problem (Free Text): Admission Diagnosis/Problem Admission Diagnosis/Problem Syncope Leni is an 89yo female, appears younger than her age here for syncope evaluation and HTN. She has been working with PT/OT doing well and feeling stronger; denies SOB, GUZMÁN , CP or dizziness with activity. B/P this am still significantly elevated at 180 /90-100- asymptomatic. Functional Status: Reports: tolerating diet, ambulating, urinating. Denies: new symptoms - Review of Systems General: Reports: No Symptoms HEENT: Reports: no symptoms Pulmonary: Reports: no symptoms. Denies: shortness of breath, cough Cardiovascular: Reports: No Symptoms. Denies: Chest Pain, Palpitations, Dyspnea on Exertion, Orthopnea, Edema, Lightheadedness Gastrointestinal: Reports: No symptoms. Denies: Abdominal pain, Diarrhea, Hematochezia, Melena, Nausea, Vomiting Musculoskeletal: Reports: no symptoms Neurological: Reports: No Symptoms. Denies: Confusion, Dizziness, Headache Psychiatric: Reports: no symptoms - Patient Data Vitals - most recent: Last Vital Signs Temp 98.4 F 05/09/16 11:54 Pulse 62 05/09/16 11:54 Resp 20 05/09/16 11:54 BP 138/72 05/09/16 11:55 Pulse Ox 98 05/09/16 11:54 Weight - most recent: 164 lb 9.6 oz I&O - last 24 hours: Intake & Output 05/08/16 05/09/16 05/09/16 22:59 06:59 14:59 Intake Total 575 710 240 Output Total 1300 1475 Balance -725 -765 240 Lab Results last 24 hrs: Laboratory Results - last 24 hr 05/09/16 05/09/16 05/09/16 Range/Units 04:15 04:15 10:45 WBC 4.21 (3.98-10.04) K/mm3 RBC 2.82 L (3.98-5.22) M/mm3 Hgb 8.9 L (11.2-15.7) gm/L Hct 26.4 L (34.1-44.9) % MCV 93.6 (79.4-94.8) fl MCH 31.6 (25.6-32.2) pg MCHC 33.7 (32.2-35.5) g/dl RDW Std Deviation 43.1 (36.4-46.3) fL Plt Count 176 L (182-369) K/mm3 MPV 10.0 (9.4-12.3) fl Neut % (Auto) 56.5 (34.0-71.1) % Lymph % (Auto) 28.3 (19.3-51.7) % [place] % (Auto) 12.6 H (4.7-12.5) % Eos % (Auto) 1.9 (0.7-5.8) Baso % (Auto) 0.5 (0.1-1.2) % Neut # (Auto) 2.38 (1.56-6.13) K/mm3 Lymph # (Auto) 1.19 (1.18-3.74) K/mm3 [place] # (Auto) 0.53 H (0.24-0.36) K/mm3 Eos # (Auto) 0.08 (0.04-0.36) K/mm3 Baso # (Auto) 0.02 (0.01-0.08) K/mm3 Sodium 136 (136-145) mEq/L Potassium 3.5 (3.5-5.1) mEq/L Chloride 102 (98-107) mEq/L Carbon Dioxide 24 (21-32) mEq/L Anion Gap 13.5 (5-15) BUN 11 (7-18) mg/dL Creatinine 0.9 (0.55-1.02) mg/dL Est Cr Clr Drug Dosing 35.74 mL/min Estimated GFR (MDRD) 59 (>60) mL/min BUN/Creatinine Ratio 12.2 L (14-18) Glucose 118 H (83-115) mg/dL Calcium 8.6 (8.5-10.1) mg/dL Magnesium 1.8 (1.8-2.4) mg/dl Iron 39 L (50-170) ug/dL TIBC 254 (100-400) ug/dL % Saturation 15 L (20-55) % Transferrin 203 (202-364) mg/dL C-Reactive Protein 0.3 (<1.0) mg/dL [place] Results last 24 hrs: Microbiology 05/08/16 08:35 Urine Culture - Preliminary Urine, Clean Catch Gram Negative Rods Med Orders - Current: Current Medications Acetaminophen (Tylenol) 650 mg PO Q4H PRN PRN Reason: Pain/Fever Amlodipine Besylate (Norvasc) 5 mg PO DAILY@1830 [facility] Last Admin: 05/08/16 18:22 Dose: 5 mg Clonidine HCl (Catapres-Tts 3) 0.[address] [facility] Last Admin: 05/06/16 22:57 Dose: 0.3 mg Clonidine HCl (Catapres) 0.[address] [facility] Last Admin: 05/09/16 09:12 Dose: 0.1 mg Ferrous Sulfate (Ferrous Sulfate) [address] [facility] Hydrochlorothiazide (Hydrochlorothiazide) 12.[address] [facility] Last Admin: 05/09/16 09:12 Dose: 12.5 mg Ceftriaxone Sodium 1 gm/ (Sodium Chloride) 100 mls @ 200 mls/hr IV Q24H [facility] Last Admin: 05/09/16 12:12 Dose: Not Given Lisinopril (Prinivil) [address] [facility] Last Admin: 05/09/16 09:12 Dose: 20 mg Lorazepam (Ativan) 0.5 mg PO Q12H PRN PRN Reason: Anxiety Metoprolol Succinate (Toprol Xl) [address] [facility] Miscellaneous Information (Remove Patch) [address] [facility] Last Admin: 05/06/16 21:30 Dose: 1 ea Oxybutynin Chloride (Oxybutynin) 5 mg PO DAILY PRN PRN Reason: bladder Pantoprazole Sodium (Protonix) 40 mg PO DAILY@0700 [facility] Last Admin: 05/09/16 06:31 Dose: 40 mg Rivaroxaban (Xarelto) 20 mg PO DAILY@1800 [facility] Last Admin: 05/08/16 18:22 Dose: 20 mg Simvastatin (Zocor) [address] [facility] Last Admin: 05/08/16 21:19 Dose: 5 mg Spironolactone (Aldactone) 12.[address] [facility] Last Admin: 05/09/16 09:11 Dose: 12.5 mg Discontinued Medications Amlodipine Besylate (Norvasc) 2.[address] [facility] Last Admin: 05/06/16 20:40 Dose: Not Given Amlodipine Besylate (Norvasc) 2.5 mg PO DAILY@1830 [facility] Last Admin: 05/07/16 18:04 Dose: 2.5 mg Clonidine HCl (Catapres) 0.1 mg PO ONETIME ONE Stop: 05/06/16 13:34 Last Admin: 05/06/16 13:55 Dose: 0.1 mg Clonidine HCl (Catapres) 0.1 mg PO ONETIME ONE Stop: 05/08/16 00:25 Last Admin: 05/08/16 01:01 Dose: 0.1 mg Enoxaparin Sodium (Lovenox) [address] [facility] Last Admin: 05/07/16 13:11 Dose: 40 mg Hydralazine HCl (Apresoline) 20 mg IVPUSH Q6H PRN PRN Reason: Hypertension Last Admin: 05/07/16 22:03 Dose: 20 mg Hydrochlorothiazide (Hydrochlorothiazide) 12.[address] [facility] Last Admin: 05/07/16 08:22 Dose: 12.5 mg Sodium Chloride (Normal Saline) 1,000 mls @ 100 mls/hr IV ASDIRECTED [facility] Last Admin: 05/08/16 06:32 Dose: 100 mls/hr Labetalol HCl (Normodyne) 20 mg IVPUSH ONETIME ONE Stop: 05/06/16 12:12 Last Admin: 05/06/16 12:17 Dose: 20 mg Lorazepam (Ativan) 0.5 mg IVPUSH ONETIME ONE Stop: 05/06/16 11:40 Last Admin: 05/06/16 12:03 Dose: 0.5 mg Metoclopramide HCl (Reglan) 7.5 mg IVPUSH ONETIME ONE Stop: 05/06/16 11:40 Last Admin: 05/06/16 12:03 Dose: 7.5 mg Metoprolol Succinate (Toprol Xl) [address] [facility] Last Admin: 05/09/16 09:10 Dose: 25 mg Metoprolol Succinate (Toprol Xl) 25 mg PO ONETIME ONE Stop: 05/09/16 10:09 Last Admin: 05/09/16 10:21 Dose: 25 mg Potassium Chloride (Klor-Con M20) 20 meq PO ONETIME ONE Stop: 05/06/16 13:36 Last Admin: 05/06/16 14:04 Dose: 20 meq Potassium Chloride (Klor-Con M20) Confirm Administered Dose [address] ONE Stop: 05/06/16 14:05 Last Admin: 05/06/16 19:42 Dose: Not Given Rivaroxaban (Xarelto) [address] [facility] Simvastatin (Zocor) 2.5 mg PO DAILY@1830 [facility] Last Admin: 05/06/16 21:45 Dose: Not Given Simvastatin (Zocor) 2.5 mg PO Q48H [facility] - Exam Quality Assessment: DVT prophylaxis General: alert, oriented, cooperative, no acute distress HEENT: Pupils equal, Pupils reactive, EOMI, Mucous membr. moist/pink Neck: supple Lungs: Clear to auscultation, Normal respiratory effort Cardiovascular: Regular Rate, Regular Rhythm, No Murmurs Abdomen: bowel sounds present, soft, no tenderness, no distension (Female) Exam: Deferred Back Exam: normal inspection Extremities: no edema, no calf tenderness Peripheral Pulses: 1+: dorsalis pedis (L), dorsalis pedis (R) Skin: warm, dry, intact Neurological: no new focal deficit Psy/Mental Status: alert, normal affect, normal mood - Problem List & Annotations (1) Syncope and collapse SNOMED Code(s): 015492081 Code(s): R55 - SYNCOPE AND COLLAPSE Status: Acute Priority: High Current Visit: Yes (2) Systolic hypertension with cerebrovascular disease SNOMED Code(s): 99525864 Code(s): I67.4 - HYPERTENSIVE ENCEPHALOPATHY Status: Acute Priority: High Current Visit: Yes Annotation/Comment:: acute on chronic (3) Demand ischemia SNOMED Code(s): 586163395 Code(s): I24.8 - OTHER FORMS OF ACUTE ISCHEMIC HEART DISEASE Status: Acute Priority: High Current Visit: Yes (4) Fractured nasal bones SNOMED Code(s): 445063168 Code(s): S02.2XXA - FRACTURE OF NASAL BONES, INIT ENCNTR FOR CLOSED FRACTURE Status: Acute Priority: High Current Visit: Yes Qualifiers: Encounter type: initial encounter Fracture type: closed Qualified Code(s) : S02.2XXA - Fracture of nasal bones, initial encounter for closed fracture (5) UTI (urinary tract infection) SNOMED Code(s): 45621708 Code(s): N39.0 - URINARY TRACT INFECTION, SITE NOT SPECIFIED Status: Acute Current Visit: Yes Qualifiers: Urinary tract infection type: acute cystitis Hematuria presence: without hematuria Qualified Code(s): N30.00 - Acute cystitis without hematuria - Problem List Review Problem List Initiated/Reviewed/Updated: Yes - My Orders Last 24 Hours: My Active Orders 05/09/16 12:00 UA W/MICROSCOPIC [URIN] Stat 05/09/16 12:55 Hemoccult [OCCULT BLOOD DIAGNOSTIC] [OP] Routine 05/09/16 12:59 Ambulate [RC] QID 05/09/16 17:00 Ferrous Sulfate 325 mg PO BIDMEALS 05/10/16 09:00 Metoprolol Succinate [Toprol XL] 50 mg PO DAILY - Plan Plan:: Syncope. Unclear etiology. No arrhythmias noted on telemetry here. 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 Pt had echo in 2014- will repeat Demand ischemia - due to HTN urgency. Pt denies chest pain/asymptomatic HTN urgency - cont home regimen, increase amlodipine, increase metoprolol -requires alpha john and 4 meds for control UTI - started on ceftriaxone Recent CVA work up, MRA without contrast, circulation was intact -Remote CV evaluation, carotid duplex, 2D echo, WNL Anemia- acute on chronic, by patient report -hgb continues to trend down; 8.9 today -Iron studies and occult stool ordered for today -Restart iron supplement BID, states has been on and off of iron most of her life -She is unsure of last colonoscopy; no GI hx/PUD SW recommends Home Health Likely discharge tomorrow with Home Health, son coming from [place] today to stay with her for a few days LOS may be longer than 96 hours due to above noted syncope workup; stabilization of b/p, anemia eval.
[2016-05-09] MEDS ORDERED: Polyethylene Glycol 3350 Powder 17 GM Packet PO ONE (17:39)
[2016-05-09] MEDS ORDERED: Bisacodyl 5 MG Tab PO ONE (17:39)
[2016-05-09] MEDS: Ferrous Sulfate 325 MG Tab PO SCH (17:50)
[2016-05-09] MEDS: Rivaroxaban 10 MG Tab PO SCH (17:50)
[2016-05-09] MEDS: amLODIPine 2.5 MG Tab PO SCH (17:50)
[2016-05-09] MEDS: Simvastatin 10 MG Tab PO SCH (20:36)
[2016-05-10] MEDS: Pantoprazole 40 MG Tab.CR PO SCH (06:27)
[2016-05-10] MEDS: Ferrous Sulfate 325 MG Tab PO SCH (06:27)
--- NOTE | 2016-05-10 07:26 | PCM.DCSUM1 ---
Discharge Summary - Hospital Course Free Text/Narrative:: 89 year female PMH hypertension, hyperlipidemia, urinary incontinence presented to the ED after a presyncopal episode. There is no loss of memory of the occurrence, she sat down to eat around 10 am later than her usual breakfast. Had not taken her meds which she normally takes with her breakfast. Has seen a courtroom deputy at [facility], but now sees Soheila Barragan whom she saw 2-4 weeks ago. There have been no change in her medications recently. She denied feeling ill prior to the episode; did lose urinary but there appears to be no seizure like activity. As a result of the fall she has mild facial swell and minimal pain. She reported a headcahe on presentation to the ED and two occurrences of nausea and vomiting. The EMS system was initiated by [facility]. A CVA work up was unremarkable, CT of head without contrast. An MRA of the brain was recently performed which was unremarkable. A 2D echo as well as carotid duplex were performed 2014 or 2015, each study was within normal limits. Echo was with EF of 60-65% in 2015. The patient's last admission occurred early for hypertensive urgency, she has been stable subsequently but had markedly elevated blood pressure in the ED. Patient was admitted for hypertensive urgency and r/o TIA/CVA. Neurologic symptoms resolved without incident. B/P continued to be elevated, medication regimen was augmented. Echocardiogram was repeated- results pending. Hgb continued to trend down, iron studies obtained showing low iron levels at 37. She was started on ferrous sulfate BID. Occult stool ordered, results negative.She was found to have AUTI, treated with Rocephin IV x 4 days; UC with yersinia enterocolitica organism, sensitive to Rocephin and levaquin- she will be dc'd home on PO levaquin. She worked with PT/OT without problems. She is anxious for discharge home and would like to be discharged prior to receipt of echo results- review with her PCP at follow up visit. B/P is improved, again, neurologic symptoms resolved. Son is here for discharge planning/instructions review and plans to stay with her for a few days. Face to face interview with patient and son today regarding home health care services and home PT services. Patient will benefit from continued services, medication education, monitoring, VS monitoring and education, continued strengthening and balance due to labile htn, syncopal episode, anemia. She will have follow up with PCP, Dr. Bowman within 5-7 days who will continue to oversee her Home Health Care services after hospital discharge. - Discharge Data Discharge Date: 05/10/16 (admit date 05/06/16) Discharge Disposition: Home, Self-Care 01 Condition: Good - Discharge Diagnosis/Problem(s) (1) Syncope and collapse SNOMED Code(s): 556090920 ICD Code: R55 - SYNCOPE AND COLLAPSE Status: Acute Priority: High Current Visit: Yes (2) Systolic hypertension with cerebrovascular disease ICD Code: I67.4 - HYPERTENSIVE ENCEPHALOPATHY Status: Acute Priority: High Current Visit: Yes Problem Details: acute on chronic (3) Demand ischemia SNOMED Code(s): 960430075 ICD Code: I24.8 - OTHER FORMS OF ACUTE ISCHEMIC HEART DISEASE Status: Acute Priority: High Current Visit: Yes (4) UTI (urinary tract infection) SNOMED Code(s): 65614905 ICD Code: N39.0 - URINARY TRACT INFECTION, SITE NOT SPECIFIED Status: Acute Current Visit: Yes Qualifiers: Urinary tract infection type: acute cystitis Hematuria presence: without hematuria Qualified Code(s): N30.00 - Acute cystitis without hematuria - Patient Summary/Data Operative Procedure(s) Performed: None Complications: None Consults: Consultations 05/06/16 18:55 Consult to Melt House Centrifugal Operator [CONS] Routine 05/07/16 09:00 Consult to Physical Therapy [PT Evaluation and Treatment] [CONS] Routine 05/07/16 10:00 Consult to Occupational Therapy [OT Evaluation and Treatment] [CONS] Routine Labs Pending at D/C: Echocardiogram -- will review with PCP at follow up visit Recommended Follow-up Testing/Procedures: Home with home health care and home PT and has information on community based services. Follow up with Dr. Bowman within 5-7 days of discharge; review echocardiogram results & data from [facility] system for events on 3 am when pt fell to floor. Check blood pressure once daily, random times throughout the day, record and bring record to Dr. richmond. Increase iron rich foods; red meats, green leafy vegetables, take iron supplement with vitamin C for better absorption. Planned Operative Procedure(s) after DC: None Hospital Course: As above - Patient Instructions Diet: Heart Healthy Diet, Low Sodium, Drink 8-10+ Glasses/Day Activity: As Tolerated (caution with rising from sitting to standing, lying to sitting) Showering/Bathing: May Shower Notify Provider of: Fever, Increased Pain (dizziness, headache, chest pain, palpitations, feeling of faintness or lightheadedness) - Discharge Plan Prescriptions/Med Rec: cloNIDine [Catapres] 0.1 mg PO Q12HR #60 tablet Ferrous Sulfate 325 mg PO BIDMEALS #60 tablet Levofloxacin [Levaquin] 500 mg PO DAILY #7 tablet Metoprolol Succinate [Toprol XL] 50 mg PO DAILY #30 tab.er Home Medications: Home Meds Oxybutynin 5 mg PO DAILY PRN 03/17/14 [History] Cyanocobalamin (Vitamin B-12) [B-12] 2,500 mcg PO DAILY 12/01/14 [History] LORazepam [Ativan] 0.5 mg PO Q12H PRN 12/01/14 [History] Lisinopril [Prinivil] 20 mg PO BID 12/01/14 [History] Spironolactone [Aldactone] 12.5 mg PO DAILY 12/01/14 [History] cloNIDine [Catapres-TTS 3] 0.3 mg TOP WEEKLY 12/01/14 [History] Aspirin/Calcium Carbonate/Mag [Aspirin Buffered 325 mg Tab] 325 mg PO DAILY 08/21 [History] Lutein 2 tab PO BID 05/14/15 [History] Hydrochlorothiazide 12.5 mg PO DAILY 05/06/16 [History] Omeprazole 20 mg PO DAILY 05/06/16 [History] Rivaroxaban [Xarelto] 20 mg PO QPM 05/06/16 [History] amLODIPine [Norvasc] 2.5 mg PO DAILY 05/06/16 [History] Pravastatin Sodium 5 mg PO Q48H 05/07/16 [History] Ferrous Sulfate 325 mg PO BIDMEALS #60 tablet 05/10/16 [Rx] Levofloxacin [Levaquin] 500 mg PO DAILY #7 tablet 05/10/16 [Rx] Metoprolol Succinate [Toprol XL] 50 mg PO DAILY #30 tab.er 05/10/16 [Rx] cloNIDine [Catapres] 0.1 mg PO Q12HR #60 tablet 05/10/16 [Rx] Patient Handouts: Transient Ischemic Attack, Mvri-ol-Gjsm, Urinary Tract Infection, Adult, Xdyw-ut-[id number], Hypertension, Zesz-qs-Azll, Iron-Rich Diet Forms: ED Department Discharge Referrals: Ravinder Bowman MD [Physician] - 05/18/16 8:10 am (Please see Dr. Ravinder Bowman at [facility] on Monday at 8:10 AM 05/18/16.) - Discharge Summary/Plan Comment DC Time >30 min.: Yes (40 min) - General Info Date of Service: 05/10/16 Admission Dx/Problem (Free Text: Admission Diagnosis/Problem Admission Diagnosis/Problem Syncope Leni is an 89yo female, appears younger than her age here for syncope evaluation and HTN. She has been working with PT/OT doing well and feeling stronger; denies SOB, GUZMÁN , CP or dizziness with activity. B/P's are improved 130's/70's overnight and this morning. Functional Status: Reports: pain controlled, tolerating diet, ambulating, urinating. Denies: new symptoms - Review of Systems General: Reports: No Symptoms HEENT: Reports: no symptoms Pulmonary: Reports: no symptoms Cardiovascular: Reports: No Symptoms Gastrointestinal: Reports: No symptoms Genitourinary: Reports: no symptoms Musculoskeletal: Reports: no symptoms Skin: Reports: no symptoms Neurological: Reports: No Symptoms Psychiatric: Reports: no symptoms - Patient Data Vitals - Most Recent: Last Vital Signs Temp 98.8 F 05/10/16 04:00 Pulse 62 05/10/16 04:00 Resp 16 05/10/16 04:00 BP 138/84 05/10/16 04:00 Pulse Ox 98 05/10/16 04:00 Orthostatic Blood Pressure [ 146/84 Standing] Orthostatic Blood Pressure [ 138/84 Sitting] Orthostatic Blood Pressure [ 132/80 Supine] Weight - Most Recent: 164 lb 3.2 oz I&O - Last 24 hours: Intake & Output 05/09/16 05/10/16 05/10/16 22:59 06:59 14:59 Intake Total 2510 1010 Output Total 900 2100 Balance 1610 -1090 Lab Results - Last 24 hrs: Laboratory Results - last 24 hr 05/09/16 05/09/16 Range/Units 10:45 12:10 Iron 39 L (50-170) ug/dL TIBC 254 (100-400) ug/dL % Saturation 15 L (20-55) % Transferrin 203 (202-364) mg/dL Urine Color Yellow (Yellow) Urine Appearance Clear (Clear) Urine pH 6.5 (5.0-8.0) Ur Specific [place] 1.015 (1.005-1.030) Urine Protein Negative (Negative) Urine Glucose (UA) Negative (Negative) Urine Ketones Negative (Negative) Urine Occult Blood Negative (Negative) Urine Nitrite Negative (Negative) Urine Bilirubin Negative (Negative) Urine Urobilinogen 0.2 (0.2-1.0) Ur Leukocyte Esterase Negative (Negative) Urine RBC 0-5 (0-5) /hpf Urine WBC 0-5 (0-5) /hpf Ur Epithelial Cells Not Reportable Ur Squamous Epith Cells 0-5 (0-5) /hpf Amorphous Sediment Few H (NOT SEEN) /hpf Urine Bacteria Few (FEW) /hpf Urine Mucus Not seen (FEW) /hpf MIKA Results - Last 24 hrs: Microbiology 05/08/16 08:35 Urine Culture - Preliminary Urine, Clean Catch Gram Negative Rods Med Orders - Current: Current Medications Acetaminophen (Tylenol) 650 mg PO Q4H PRN PRN Reason: Pain/Fever Amlodipine Besylate (Norvasc) 5 mg PO DAILY@1830 [facility] Last Admin: 05/09/16 17:50 Dose: 5 mg Clonidine HCl (Catapres-Tts 3) 0.3 mg TOP Q7D [facility] Last Admin: 05/06/16 22:57 Dose: 0.3 mg Clonidine HCl (Catapres) 0.1 mg PO Q12HR [facility] Last Admin: 05/09/16 20:37 Dose: 0.1 mg Ferrous Sulfate (Ferrous Sulfate) 325 mg PO BIDMEALS [facility] Last Admin: 05/10/16 06:27 Dose: 325 mg Hydrochlorothiazide (Hydrochlorothiazide) 12.5 mg PO DAILY [facility] Last Admin: 05/09/16 09:12 Dose: 12.5 mg Ceftriaxone Sodium 1 gm/ (Sodium Chloride) 100 mls @ 200 mls/hr IV Q24H [facility] Last Admin: 05/09/16 12:12 Dose: Not Given Lisinopril (Prinivil) 20 mg PO BID [facility] Last Admin: 05/09/16 20:37 Dose: 20 mg Lorazepam (Ativan) 0.5 mg PO Q12H PRN PRN Reason: Anxiety Metoprolol Succinate (Toprol Xl) 50 mg PO DAILY [facility] Miscellaneous Information (Remove Patch) 1 ea TRDERM Q7D [facility] Last Admin: 05/06/16 21:30 Dose: 1 ea Oxybutynin Chloride (Oxybutynin) 5 mg PO DAILY PRN PRN Reason: bladder Pantoprazole Sodium (Protonix) 40 mg PO DAILY@0700 [facility] Last Admin: 05/10/16 06:27 Dose: 40 mg Rivaroxaban (Xarelto) 20 mg PO DAILY@1800 [facility] Last Admin: 05/09/16 17:50 Dose: 20 mg Simvastatin (Zocor) 5 mg PO BEDTIME [facility] Last Admin: 05/09/16 20:36 Dose: 5 mg Spironolactone (Aldactone) 12.5 mg PO DAILY [facility] Last Admin: 05/09/16 09:11 Dose: 12.5 mg Discontinued Medications Amlodipine Besylate (Norvasc) 2.5 mg PO DAILY [facility] Last Admin: 05/06/16 20:40 Dose: Not Given Amlodipine Besylate (Norvasc) 2.5 mg PO DAILY@1830 [facility] Last Admin: 05/07/16 18:04 Dose: 2.5 mg Bisacodyl (Dulcolax) 10 mg PO ONETIME ONE Stop: 05/09/16 17:40 Last Admin: 05/09/16 17:49 Dose: 10 mg Clonidine HCl (Catapres) 0.1 mg PO ONETIME ONE Stop: 05/06/16 13:34 Last Admin: 05/06/16 13:55 Dose: 0.1 mg Clonidine HCl (Catapres) 0.1 mg PO ONETIME ONE Stop: 05/08/16 00:25 Last Admin: 05/08/16 01:01 Dose: 0.1 mg Enoxaparin Sodium (Lovenox) 40 mg SUBCUT DAILY [facility] Last Admin: 05/07/16 13:11 Dose: 40 mg Hydralazine HCl (Apresoline) 20 mg IVPUSH Q6H PRN PRN Reason: Hypertension Last Admin: 05/07/16 22:03 Dose: 20 mg Hydrochlorothiazide (Hydrochlorothiazide) 12.5 mg PO DAILY [facility] Last Admin: 05/07/16 08:22 Dose: 12.5 mg Sodium Chloride (Normal Saline) 1,000 mls @ 100 mls/hr IV ASDIRECTED [facility] Last Admin: 05/08/16 06:32 Dose: 100 mls/hr Labetalol HCl (Normodyne) 20 mg IVPUSH ONETIME ONE Stop: 05/06/16 12:12 Last Admin: 05/06/16 12:17 Dose: 20 mg Lorazepam (Ativan) 0.5 mg IVPUSH ONETIME ONE Stop: 05/06/16 11:40 Last Admin: 05/06/16 12:03 Dose: 0.5 mg Metoclopramide HCl (Reglan) 7.5 mg IVPUSH ONETIME ONE Stop: 05/06/16 11:40 Last Admin: 05/06/16 12:03 Dose: 7.5 mg Metoprolol Succinate (Toprol Xl) 25 mg PO DAILY [facility] Last Admin: 05/09/16 09:10 Dose: 25 mg Metoprolol Succinate (Toprol Xl) 25 mg PO ONETIME ONE Stop: 05/09/16 10:09 Last Admin: 05/09/16 10:21 Dose: 25 mg Polyethylene Glycol (Miralax) 17 gm PO ONETIME ONE Stop: 05/09/16 17:40 Last Admin: 05/09/16 17:49 Dose: 17 gm Potassium Chloride (Klor-Con M20) 20 meq PO ONETIME ONE Stop: 05/06/16 13:36 Last Admin: 05/06/16 14:04 Dose: 20 meq Potassium Chloride (Klor-Con M20) Confirm Administered Dose 20 meq .ROUTE .STK- MED ONE Stop: 05/06/16 14:05 Last Admin: 05/06/16 19:42 Dose: Not Given Rivaroxaban (Xarelto) 20 mg PO QPM [facility] Simvastatin (Zocor) 2.5 mg PO DAILY@1830 [facility] Last Admin: 05/06/16 21:45 Dose: Not Given Simvastatin (Zocor) 2.5 mg PO Q48H [facility] - Exam Quality Assessment: Reports: DVT prophylaxis General: Reports: alert, oriented, cooperative, no acute distress HEENT: Reports: Pupils equal, Pupils reactive, EOMI, Mucous membr. moist/pink Neck: Reports: supple Lungs: Reports: Clear to auscultation, Normal respiratory effort Cardiovascular: Reports: Regular Rate, Regular Rhythm. Denies: No Murmurs Abdomen: Reports: bowel sounds present, soft, no tenderness, no distension (Female) Exam: Deferred Rectal (Female) Exam: Deferred Back Exam: Reports: normal inspection Extremities: Reports: no edema, no calf tenderness Skin: Reports: warm, dry, intact Neurological: Reports: no new focal deficit Psy/Mental Status: Reports: alert, normal affect, normal mood *Q Meaningful Use (DIS) - VTE *Q VTE Criteria *Q: - Stroke *Q Stroke Criteria *Q: - AMI *Q AMI Criteria *Q:
[2016-05-10 07:42] VITALS: BP 142/71
[2016-05-10] MEDS: Spironolactone 25 MG Tab PO SCH (08:32)
[2016-05-10] MEDS: Lisinopril 20 MG Tab PO SCH (08:32)
[2016-05-10] MEDS: Hydrochlorothiazide 12.5 MG Cap PO SCH (08:32)
[2016-05-10] MEDS: cloNIDine 0.1 MG Tab PO SCH (08:32)
[2016-05-10] MEDS ORDERED: Metoprolol Succinate 50 MG Tab.ER PO SCH (09:00)
== END 2016-05-10 10:26 | disposition home or self-care (01) | DRG 281 ==
LOC: JD.ED 11:19 → INTOOBSV 15:58 → JD.MS 15:58 → OBSVTOIN 15:58 → UNDOADMOB 15:58 → JD.MS 17:30 → OBSVTOIN 21:08 → JD.MS 21:08 → UNDOADMIN 21:08 → UNDODISIN 05-10 10:26
PROVIDERS: ADMIT Emergency Medicine; ATTEND Internal Medicine
DX: I16.0 Hypertensive urgency (principal); I11.9 Hypertensive heart disease without heart failure; I10 Essential (primary) hypertension; E78.00 Pure hypercholesterolemia, unspecified; I21.4 Non-ST elevation (NSTEMI) myocardial infarction; I67.4 Hypertensive encephalopathy; N39.0 Urinary tract infection, site not specified; I24.8 Other forms of acute ischemic heart disease; R55 Syncope and collapse; Y92.000 Kitchen of unspecified non-institutional (private) residence as the place of occurrence of the external cause; Z86.73 Personal history of transient ischemic attack (TIA), and cerebral infarction without residual deficits; R51 Headache; S02.2XXA Fracture of nasal bones, initial encounter for closed fracture; W18.30XA Fall on same level, unspecified, initial encounter; D64.9 Anemia, unspecified; E78.5 Hyperlipidemia, unspecified; N39.41 Urge incontinence; G89.29 Other chronic pain; M54.9 Dorsalgia, unspecified; Z79.82 Long term (current) use of aspirin; Z79.899 Other long term (current) drug therapy; Z88.8 Allergy status to other drugs, medicaments and biological substances; M19.90 Unspecified osteoarthritis, unspecified site; M81.0 Age-related osteoporosis without current pathological fracture
CPT/HCPCS: 36415; 70450; 71010; 72125; 80053; 81001; 82550; 82553; 84484; 85025; 85610; 93005; 96361; 96374; 96375; 99285; A9270 ×3; J2060; J2765; J7040; 80048; 82272; 83540; 83735; 84443; 84466; 85018; 86140; 86738; 87086; 87088; 87186; 87804; 93306; 97110-GP; 97116-GP; 97140-GP; 97161-GP; 97165-GO; 97530-GO; 99231; 99232; 99239; J0360; J0696; J1650; J7030

== ENCOUNTER 2016-08-27 08:02 | Emergency (ER) | payer MEDICARE, BC ==
[2016-08-27 08:18] VITALS: BP 174/55
[2016-08-27] MEDS ORDERED: Naproxen 500 MG Tab PO ONE (08:38)
[2016-08-27] MEDS ORDERED: traMADol 50 MG Tab PO ONE (08:38)
--- NOTE | 2016-08-27 09:37 | EDM.PDOC ---
ED HPI GENERAL MEDICAL PROBLEM - General Chief Complaint: Back Pain or Injury Stated Complaint: BACK/R HIP/LEG PAIN Time Seen by Provider: 08/27/16 08:19 Source of Information: Reports: Patient History Limitations: Reports: No Limitations - History of Present Illness INITIAL COMMENTS - FREE TEXT/NARRATIVE: The patient presents with right lower back pain and pain to her right leg. This started about 3 days ago and it has gotten worse. She says she has had trouble with her back and hip after surgery in May. It was doing okay until about 3 days ago. She did not fall and she was not lifting anything when this happened. She denies fever, chills, cough, chest pain, shortness of breath, abdominal pain, nausea or vomiting. Onset: Gradual Duration: Day(s): (3) Location: Reports: Back (Right lower), Lower Extremity, Right Quality: Reports: Sharp Severity: Moderate Improves with: Reports: Other (rest) Worsens with: Reports: Movement Associated Symptoms: Reports: No Other Symptoms Back Pain Score (Numeric/FACES): 9 - Related Data Allergies Allergy/AdvReac Type Severity Reaction Status Date / Time hydralazine AdvReac Delusions Verified 08/27/16 08:18 procaine HCl [From Novocain] AdvReac Fainting Verified 08/27/16 08:18 rosuvastatin calcium AdvReac Muscle Verified 08/27/16 08:18 [From Crestor] Aches Home Meds: Home Meds Oxybutynin 5 mg PO DAILY PRN 03/17/14 [History] Cyanocobalamin (Vitamin B-12) [B-12] 2,500 mcg PO DAILY 12/01/14 [History] LORazepam [Ativan] 0.5 mg PO Q12H PRN 12/01/14 [History] Lisinopril [Prinivil] 20 mg PO BEDTIME 12/01/14 [History] Spironolactone [Aldactone] 25 mg PO DAILY 12/01/14 [History] Lutein 2 tab PO BID 05/14/15 [History] Hydrochlorothiazide 12.5 mg PO DAILY 05/06/16 [History] Omeprazole 20 mg PO DAILY 05/06/16 [History] Rivaroxaban [Xarelto] 20 mg PO QPM 05/06/16 [History] amLODIPine [Norvasc] 2.5 mg PO DAILY 05/06/16 [History] Pravastatin Sodium 5 mg PO Q48H 05/07/16 [History] Metoprolol Succinate [Toprol XL] 50 mg PO DAILY #30 tab.er 05/10/16 [Rx] cloNIDine [Catapres] 0.1 mg PO Q12HR #60 tablet 05/10/16 [Rx] traMADol [Ultram] 50 - 100 mg PO Q6H PRN #20 tablet 08/27/16 [Rx] Past Medical History HEENT History: Reports: Cataract, Hard of Hearing Cardiovascular History: Reports: High Cholesterol, Hypertension Genitourinary History: Reports: Urinary Incontinence PHYSICIAN INTERVENTIONAL CARDIOLOGIST History: Reports: Musculoskeletal History: Reports: Back Pain, Chronic, Osteoarthritis, Osteoporosis Neurological History: Reports: CVA, TIA Other Neuro History: currently admitted for TIA Psychiatric History: Reports: Anxiety Hematologic History: Reports: Anemia, B12 Deficiency Oncologic (Cancer) History: Reports: Other (See Below) Other Oncologic History: mouth - Infectious Disease History Infectious Disease History: Reports: Chicken Pox, Measles, Mumps, Shingles - Past Surgical History HEENT Surgical History: Reports: Cataract Surgery, Oral Surgery Neurological Surgical History: Reports: None Social & Family History - Family History Cardiac: Reports: Heart Failure, High Cholesterol, Hypertension, [place] Respiratory: Reports: COPD OBGYN: Reports: Oncologic: Reports: Lung, Pancreatic - Tobacco Use Smoking Status *Q: Never Smoker Second Hand Smoke Exposure: No - Caffeine Use Caffeine Use: Reports: Coffee, Tea - Alcohol Use Days Per Week of Alcohol Use: 0 - Recreational Drug Use Recreational Drug Use: No - Living Situation & Occupation Living situation: Reports: , Alone Occupation: Retired ED ROS GENERAL - Review of Systems Review Of Systems: See Below Constitutional: Reports: No Symptoms HEENT: Reports: No Symptoms Respiratory: Reports: No Symptoms Cardiovascular: Reports: No Symptoms Endocrine: Reports: No Symptoms GI/Abdominal: Reports: No Symptoms : Reports: No Symptoms Musculoskeletal: Reports: Back Pain (Right lower back pain), Other (Right leg pain) Skin: Reports: No Symptoms ED EXAM,LOWER BACK PAIN/INJURY - Physical Exam Exam: See Below Exam Limited By: No Limitations General Appearance: Alert, No Apparent Distress Ears: Normal External Exam Nose: Normal Inspection Head: Atraumatic, Normocephalic Neck: Normal Inspection Respiratory/Chest: No Respiratory Distress, Lungs Clear, Normal Breath Sounds Cardiovascular: Regular Rate, Rhythm, No Edema, No Murmur GI/Abdominal: Soft, Non-Tender, No Organomegaly, No Mass Back Exam: Other (Pain upon palpation to the right lower back) Extremities: Other (Pain upon palpation to the right hip and proximal lateral thigh. Good sensation and pulses distally.) Course - Vital Signs Last Recorded V/S: Last Vital Signs Temp 97.6 F 08/27/16 08:15 Pulse 56 L 08/27/16 08:15 Resp 20 08/27/16 08:15 BP 174/55 H 08/27/16 08:15 Pulse Ox 99 08/27/16 08:15 - Orders/Labs/Meds Meds: Medications Discontinued Medications Generic Name Dose Route Start Last Admin Trade Name Freq PRN Reason Stop Dose Admin Hydromorphone HCl 0.5 mg 08/27/16 09:42 08/27/16 09:50 Dilaudid IM 08/27/16 09:43 0.5 mg ONETIME ONE Administration Naproxen 500 mg 08/27/16 08:38 08/27/16 08:51 Naprosyn PO 08/27/16 08:39 500 mg ONETIME ONE Administration Ondansetron HCl 4 mg 08/27/16 10:28 08/27/16 10:32 Zofran Odt PO 08/27/16 10:29 4 mg ONETIME ONE Administration Tramadol HCl 50 mg 08/27/16 08:38 08/27/16 08:51 Ultram PO 08/27/16 08:39 50 mg ONETIME ONE Administration - Re-Assessments/Exams Free Text/Narrative Re-Assessment/Exam: 08/27/16 09:36 I ordered some naprosyn and ultram and I ordered an x-ray of her hip and low back. The x-ray of her hip shows some arthritis and she has scholiosis and arthritis of her back. 08/27/16 10:52 She still had pain so I ordered dilaudid 0.5mg IM. She got nauseated with it so I ordered some zofran 4mg by mouth. She feels better now. I will discharge her with some ultram and follow up with Dr Bowman. Departure - Departure Time of Disposition: 10:55 Disposition: Home, Self-Care 01 Condition: Good Clinical Impression: Right hip pain Low back pain Qualifiers: Chronicity: acute Back pain laterality: right Sciatica presence: with sciatica Sciatica laterality: sciatica of right side Qualified Code(s): M54.41 - Lumbago with sciatica, right side Osteoarthritis Qualifiers: Osteoarthritis location: hip Osteoarthritis type: primary Laterality: right Qualified Code(s): M16.11 - Unilateral primary osteoarthritis, right hip - Discharge Information Prescriptions: traMADol [Ultram] 50 - 100 mg PO Q6H PRN #20 tablet PRN Reason: Pain Referrals: Ravinder Bowman MD [Primary Care Provider] - 1 Week Forms: ED Department Discharge Additional Instructions: Take 1 to 2 of the ultram every 6 hours as needed for pain. Follow up with Dr Bowman in 1 week. Please return if you are worse.
[2016-08-27] MEDS ORDERED: HYDROmorphone 0.5 MG/0.5 ML Syringe IM ONE (09:42)
--- NOTE | 2016-08-27 10:26 | CR ---
Right hip: AP and frog-leg lateral views of the right hip were obtained. Comparison: No previous right hip study. Minimal osteophyte off the superior femoral head is seen. Bony structures are osteoporotic. No acute fracture or other bony abnormality is seen. Impression: 1. Minimal degenerative change and osteoporosis. Diagnostic code #2
--- NOTE | 2016-08-27 10:26 | CR ---
Lumbar spine: AP, lateral and cone-down lateral views centered to the lumbosacral junction were obtained. Comparison: Previous CT lumbar spine exam Severe disc space narrowing noted at L5-S1 with vacuum phenomena. Mild spondylolisthesis is noted at L4-L5 compatible with degenerative apophyseal change. Other disc spaces are fairly well preserved. Vertebral body heights are maintained. Scattered endplate osteophytes are seen. Mild scoliosis is noted. Impression: 1. Degenerative change and osteoporosis. Findings are fairly stable from previous CT exam. Diagnostic code #2
[2016-08-27] MEDS ORDERED: Ondansetron 4 MG Tab.DIS PO ONE (10:28)
== END 2016-08-27 11:00 | disposition home or self-care (01) ==
LOC: JD.ED 08:02
DX: M54.41 Lumbago with sciatica, right side (principal); M16.11 Unilateral primary osteoarthritis, right hip; I10 Essential (primary) hypertension; E78.00 Pure hypercholesterolemia, unspecified; M81.0 Age-related osteoporosis without current pathological fracture; F41.9 Anxiety disorder, unspecified; Z86.2 Personal history of diseases of the blood and blood-forming organs and certain disorders involving the immune mechanism; Z86.73 Personal history of transient ischemic attack (TIA), and cerebral infarction without residual deficits; Z98.49 Cataract extraction status, unspecified eye; Z79.899 Other long term (current) drug therapy; Z88.8 Allergy status to other drugs, medicaments and biological substances; Z88.4 Allergy status to anesthetic agent
CPT/HCPCS: 72100; 73502; 96372; 99284; A9270; J1170; 99283